=== PATIENT | female | born 1935 | race Caucasian/White ===

== ENCOUNTER 2017-01-22 08:53 | Inpatient (IN) | payer MEDICARE, OTHER ==
[~2017-01-22] VITALS: Ht 152.4 cm; Wt 65.0 kg
[2017-01-22 08:54] VITALS: BP 143/60; PULSE 102; RESP 20; TEMP 98.6; O2SAT 96
[2017-01-22] MEDS ORDERED: ZYPR5TAB PO (09:07)
[2017-01-22 09:14] VITALS: O2SAT 96
--- NOTE | 2017-01-22 09:28 | RADRPT ---
EXAM DATE/TIME: 01/22/2017 09:15 [facility] COMPARISON: No previous studies available for comparison. INDICATIONS : Patient is short of breath and has had pain on right side on her neck. MEDICAL HISTORY : None. SURGICAL HISTORY : Ovarian. ENCOUNTER: Initial ACUITY: 1 day PAIN SCORE: 0/10 LOCATION: Bilateral chest FINDINGS: A single view of the chest demonstrates the lungs to be symmetrically aerated with minimal atelectati c changes of both hemidiaphragms no confluent infiltrate or effusions. Heart size is normal. Degenera tive spurring in the mid dorsal spine. Osseous structures are otherwise intact. CONCLUSION: 1. Minimal bibasilar atelectatic changes/scarring. Lungs are otherwise clear. 2. Heart size is normal. No failure or effusions. Tacho Bryan MD on January 22, 2017 at 9:25 Board Certified Radiologist. This report was verified electronically.
--- NOTE | 2017-01-22 09:38 | PD ---
HPI Chief Complaint: ENT Complaint Time Seen by Provider: 09:07 Travel History International Travel<30 days: No Contact w/Intl Traveler<30days: No Traveled to known affect area: No History of Present Illness HPI 81-year-old female with no reported past medical history, presents today with complaints of neck swelling and difficulty swallowing. Patient also reports having loud snoring. She states that she's pulling secretions in her mouth and is having difficulty sleeping. She denies any fevers, chills patient does report a cough with white yellow phlegm. There are no other complaints time my examination. PFSH Past Surgical History Other Surgery: Yes (ovaries) Social History Alcohol Use: No Tobacco Use: No Substance Use: No Allergies-Medications (Allergen,Severity, Reaction): Coded Allergies: No Known Allergies (Verified , 01/22/17) Reported Meds & Prescriptions Reported Meds & Active Scripts Active Reported Zyprexa (Olanzapine) 5 Mg Tab 5 Mg PO DAILY Review of Systems Except as stated in HPI: all other systems reviewed are Neg General / Constitutional: No: Fever, Chills HENT: Positive: Neck Pain, Masses (neck masses), No: Headaches, Lightheadedness Cardiovascular: No: Chest Pain or Discomfort, Palpitations Respiratory: Positive: Cough (yellow), Shortness of Breath, Wheezing Gastrointestinal: No: Nausea, Vomiting, Abdominal Pain Genitourinary: No: Frequency, Dysuria Musculoskeletal: Positive: Weakness (generalized), No: Pain Neurologic: Positive: Weakness, No: Syncope, Focal Abnormalities, Headache ( generalized) Physical Exam Narrative GENERAL: Well-developed well-nourished female with audible coarse breath sounds. SKIN: Focused skin assessment warm/dry. HEAD: Atraumatic. Normocephalic. EYES: Pupils equal and round. No scleral icterus. No injection or drainage. ENT: No nasal bleeding or discharge. Mucous membranes pink and moist. NECK: Trachea midline. Bilateral submandibular masses. CARDIOVASCULAR: Regular rate and rhythm. No murmur appreciated. RESPIRATORY: Coarse rhonchi in the bilateral upper airways. No Rales in the distal airways. GASTROINTESTINAL: Abdomen soft, non-tender, nondistended. Hepatic and splenic margins not palpable. MUSCULOSKELETAL: No obvious deformities. No clubbing. No cyanosis. No edema. NEUROLOGICAL: Awake and alert. No obvious cranial nerve deficits. Motor grossly within normal limits. Normal speech. PSYCHIATRIC: Appropriate mood and affect; insight and judgment normal. Data Data Last Documented VS Vital Signs Date Time Temp Pulse Resp B/P Pulse Ox O2 Delivery O2 Flow Rate FiO2 01/22/17 11:08 78 20 138/65 97 01/22/17 08:54 98.6 Room Air Orders Complete Blood Count With Diff (01/22/17 09:07) Comprehensive Metabolic Panel (01/22/17 09:07) Thyroid Stimulating Hormone (01/22/17 09:07) Chest, Single Ap (01/22/17 09:07) Iv Access Insert/Monitor (01/22/17 09:07) Ecg Monitoring (01/22/17 09:07) Oximetry (01/22/17 09:07) Ct Soft Tiss Neck W Iv Cont (01/22/17 ) Iohexol 350 Inj (Omnipaque 350 Inj) (01/22/17 10:25) Cbc No Diff, Includes Plts (01/23/17 05:00) Cbc No Diff, Includes Plts (01/24/17 05:00) Cbc No Diff, Includes Plts (01/25/17 05:00) Cbc No Diff, Includes Plts (01/26/17 05:00) Cbc No Diff, Includes Plts (01/27/17 05:00) Cbc No Diff, Includes Plts (01/28/17 05:00) Cbc No Diff, Includes Plts (01/29/17 05:00) Basic Metabolic Panel (Bmp) (01/23/17 05:00) Basic Metabolic Panel (Bmp) (01/24/17 05:00) Basic Metabolic Panel (Bmp) (01/25/17 05:00) Basic Metabolic Panel (Bmp) (01/26/17 05:00) Basic Metabolic Panel (Bmp) (01/27/17 05:00) Basic Metabolic Panel (Bmp) (01/28/17 05:00) Basic Metabolic Panel (Bmp) (01/29/17 05:00) Magnesium Oxide (Mag-Ox) (01/22/17 12:00) Magnesium Sulfate Inj (Magnesium Sulfate (01/22/17 12:00) Magnesium Sulfate Inj (Magnesium Sulfate (01/22/17 12:00) Potassium Chlor 20 Meq Premix (Kcl 20 Me (01/22/17 12:00) Potassium Chlor 20 Meq Premix (Kcl 20 Me (01/22/17 12:00) Potassium Chlor 40 Meq Premix (Kcl 40 Me (01/22/17 12:00) Potassium Chlor 40 Meq Premix (Kcl 40 Me (01/22/17 12:00) Potassium Phosphate (K-Phos) (01/22/17 12:00) Potassium Phosphate (K-Phos) (01/22/17 12:00) Potassium Phosphate Inj (Potassium Phosp (01/22/17 12:00) Sodium Phosphate Inj (Sodium Phosphate I (01/22/17 12:00) ^ Medication Admin Instruction (01/22/17 11:52) Notify Dr: Other (01/22/17 11:52) Inpatient Certification (01/22/17 11:52) Resp Ezpap/Pep Therapy (01/22/17 11:52) Resp Acapella/Pep/Chest Vibra (01/22/17 11:52) Resp Incentive Spirometry (01/22/17 11:52) Albuterol-Ipratropium Neb (Duoneb Neb) (01/22/17 16:00) Albuterol-Ipratropium Neb (Duoneb Neb) (01/22/17 12:00) Code Status (01/22/17 11:52) Activity Bed Rest (01/22/17 11:52) Elevate Head Of Bed (01/22/17 11:52) Diet Npo (01/22/17 Lunch) Sodium Chlor 0.9% 1000 Ml Inj (Ns 1000 M (01/22/17 12:00) Ondansetron Inj (Zofran Inj) (01/22/17 12:00) Heparin Inj (Heparin Inj) (01/22/17 13:00) Scd Bilateral/Knee High GREGORIO.BID (01/22/17 11:52) ^ Initiate Protocol (01/22/17 11:52) Instruction (01/22/17 11:52) Misc Nursing Information (01/22/17 12:00) Chlorhexidine 2% Cloth (Chlorhexidine 2% (01/23/17 04:00) Chlorhexidine 2% Cloth (Chlorhexidine 2% (01/22/17 12:00) Mrsa Pcr Surveillance (01/22/17 11:52) Dexamethasone Inj (Decadron Inj) (01/22/17 13:00) Admit Order (Ed Use Only) (01/22/17 12:08) Labs Laboratory Tests Test 01/22/17 09:10 White Blood Count 9.3 TH/MM3 Red Blood Count 4.08 MIL/MM3 Hemoglobin 12.4 GM/DL Hematocrit 36.4 % Mean Corpuscular Volume 89.3 FL Mean Corpuscular Hemoglobin 30.3 PG Mean Corpuscular Hemoglobin 34.0 % Concent Red Cell Distribution Width 13.6 % Platelet Count 317 TH/MM3 Mean Platelet Volume 9.9 FL Neutrophils (%) (Auto) 82.6 % Lymphocytes (%) (Auto) 8.9 % Monocytes (%) (Auto) 7.1 % Eosinophils (%) (Auto) 1.0 % Basophils (%) (Auto) 0.4 % Neutrophils # (Auto) 7.7 TH/MM3 Lymphocytes # (Auto) 0.8 TH/MM3 Monocytes # (Auto) 0.7 TH/MM3 Eosinophils # (Auto) 0.1 TH/MM3 Basophils # (Auto) 0.0 TH/MM3 CBC Comment DIFF FINAL Differential Comment Sodium Level 141 MEQ/L Potassium Level 3.8 MEQ/L Chloride Level 103 MEQ/L Carbon Dioxide Level 31.0 MEQ/L Anion Gap 7 MEQ/L Blood Urea Nitrogen 12 MG/DL Creatinine 1.06 MG/DL Estimat Glomerular Filtration 50 ML/MIN Rate Random Glucose 133 MG/DL Calcium Level 9.4 MG/DL Total Bilirubin 0.3 MG/DL Aspartate Amino Transf 15 U/L (AST/SGOT) Alanine Aminotransferase 17 U/L (ALT/SGPT) Alkaline Phosphatase 57 U/L Total Protein 7.7 GM/DL Albumin 3.2 GM/DL Thyroid Stimulating Hormone 3.680 uIU/ML [address] [place] [address] Medical Decision Making Medical Screen Exam Complete: Yes Emergency Medical Condition: Yes Interpretation(s) Last 24 hours Impressions Chest X-Ray 01/22/17 0907 Signed Impressions: Service Date/Time: Sunday, January 22, 2017 09:15 - CONCLUSION: 1. Minimal bibasilar atelectatic changes/scarring. Lungs are otherwise clear. 2. Heart size is normal. No failure or effusions. Tacho Bryan MD Neck CT 01/22/17 0000 Signed Impressions: Service Date/Time: Deny, January 22, 2017 10:24 - CONCLUSION: Mass base of the tongue, right tonsillar pillar extending down to the vocal cords with direct extension into the right neck with substantial airway compromise. Adair Sam MD FACR Differential Diagnosis Lymphadenopathy versus neck mass versus esophageal mass Narrative Course This is a 81-year-old female with history of psychosocial issues, who presents today with complaints of neck mass with snoring respirations. The patient has on CT scan a large neck mass that radiates from the base of the tongue. There is airway compromise. After receiving the CAT scan results, I called Dr. Sim , on-call ENT, who stated that he would be happy to see the patient in consultation however he does not do tracheostomies at [facility]. He reported the general surgeons are the service that does the tracheostomies. I did contact Dr. Raimundo Goodman, environmental scientist and recommended we admit her to the intensive care unit until we can arrange for Gen. surgery to do a tracheostomy. Dr. Malave, on- call for Gen. surgery came down and evaluated the patient and did not feel comfortable performing the tracheostomy. He contacted Dr. Sim who recommended we contact Dr. Tacho Maurer at [facility]. I spoke with Dr. Maurer's physician pastry assistant who stated they would be happy to see the patient in consultation and recommended we contact the transfer center for a hospitalist willing to admit the patient. I spoke with a Dr. Negron who is agreeable to admit the patient however given the fact that we're to send the patient to the intensive care unit here, she recommended we talked to the environmental scientist to see what they would be willing to admit the patient to their service. I spoke with Dr. Li, environmental scientist who agreed to admit the patient. We will transfer the patient to [facility]. I informed him that we would be happy to take her back once the tracheostomy was performed. We're arranging for transport. As soon as a bed is available, we will call the ambulance service for transfer. Diagnosis Primary Impression: complicated neck mass with airway impingement Additional Impression: Chronic schizophrenia Disposition: 70 TRANSFER TO OTHER FACILITY Condition: Stable Prince Bland MD Jan 22, 2017 09:38 Prince Bland MD Jan 22, 2017 09:38
[2017-01-22 09:47] LABS: AUTOMATED NEUTROPHIL # 7.7 TH/MM3 (1.8-7.7); BASOPHIL % 0.4 % (0.0-2.0); EOSINOPHIL # 0.1 TH/MM3 (0-0.4); HEMATOCRIT 36.4 % (35.0-46.0); HEMO FLAGS DIFF FINAL; LYMPH % 8.9 % (9.0-44.0); LYMPHOCYTE # 0.8 TH/MM3 (1.0-4.8); MEAN CELL VOLUME 89.3 FL (80.0-100.0); MEAN CORPUSCULAR HEMOGLOBIN 30.3 PG (27.0-34.0); MONO % 7.1 % (0.0-8.0); NEUT % 82.6 % (16.0-70.0); PLATELET COUNT 317 TH/MM3 (150-450); RED BLOOD COUNT 4.08 MIL/MM3 (4.00-5.30); RED CELL DISTRIBUTION WIDTH 13.6 % (11.6-17.2); WHITE BLOOD COUNT 9.3 TH/MM3 (4.0-11.0)
[2017-01-22 10:03] LABS: ALT (GPT) 17 U/L (10-53); ANION GAP 7 MEQ/L (5-15); AST (GOT) 15 U/L (15-37); BLOOD UREA NITROGEN 12 MG/DL (7-18); CHLORIDE 103 MEQ/L (98-107); GLOMERULAR FILTRATION RATE 50 ML/MIN (>89); POTASSIUM 3.8 MEQ/L (3.5-5.1); SODIUM (NA) 141 MEQ/L (136-145)
[2017-01-22 10:13] LABS: ALKALINE PHOSPHATASE 57 U/L (45-117); TOTAL BILIRUBIN ADULT 0.3 MG/DL (0.2-1.0)
[2017-01-22] MEDS ORDERED: IOHEXOL 350 MG/ML 10 ML VIAL (for RAD DIAG) IV ONE (10:25)
[2017-01-22 11:08] VITALS: BP 138/65; PULSE 78; RESP 20; O2SAT 97
--- NOTE | 2017-01-22 11:41 | RADRPT ---
EXAM DATE/TIME: 01/22/2017 10:24 [facility] COMPARISON: No previous studies available for comparison. INDICATIONS : Right throat pain. IV CONTRAST: 100 cc Omnipaque 350 (iohexol) IV RADIATION DOSE: 13.87 CTDIvol (mGy) MEDICAL HISTORY : None SURGICAL HISTORY : None. ENCOUNTER: Initial ACUITY: 2 days PAIN SCALE: 5/10 LOCATION: Right neck TECHNIQUE: Volumetric scanning of the neck was performed. Using automated exposure control and adjustment of th e mA and/or kV according to patient size, radiation dose was kept as low as reasonably achievable to obtain optimal diagnostic quality images. DICOM format image data is available electronically for r eview and comparison. FINDINGS: There is right maxillary sinus disease evident. The nasopharynx is unremarkable There is an mass involving tonsillar pillar base of the tongue on the right extending down to the lev el of the true vocal cords with extensive involvement of the right true vocal cord which is fixed. T umor has spread into the soft tissues of the neck by direct extension There is confluent zoey mass and/or direct extension of tumor in the right neck measuring 3.9 cm x 2 .7 cm. This extends down to the level of the clavicle with involving of the thyroid. Moderate degenerative changes are present in the cervical spine without bony metastatic disease. Lung apex is clear. CONCLUSION: Mass base of the tongue, right tonsillar pillar extending down to the vocal cords with direct extensi on into the right neck with substantial airway compromise. Adair Sam MD FACR on January 22, 2017 at 11:34 Board Certified Radiologist. This report was verified electronically.
[2017-01-22] MEDS ORDERED: POTASSIUM CHLOR 20 MEQ PREMIX 100 ML IV PRN ×2 (12:00)
[2017-01-22] MEDS ORDERED: CHLORHEXIDINE GLUCONATE 2 % 1 PACK (2 CLOTHS) TOP PRN (12:00)
[2017-01-22] MEDS ORDERED: SODIUM CHLOR 0.9% 1000 ML INJ 1,000 ML IV SCH (12:00)
[2017-01-22] MEDS ORDERED: MAGNESIUM OXIDE 400 MG TAB PO PRN (12:00)
[2017-01-22] MEDS ORDERED: SODIUM PHOSPHATE INJ 30 MMOL in SODIUM CHLOR 0.9% 250 ML INJ 240 ML IV PRN (12:00)
[2017-01-22] MEDS ORDERED: POTASSIUM PHOSPHATE INJ 30 MMOL in SODIUM CHLOR 0.9% 250 ML INJ 250 ML IV PRN (12:00)
[2017-01-22] MEDS ORDERED: MAGNESIUM SULFATE INJ 2 GM in SODIUM CHLORIDE 0.9% INJ 96 ML IV PRN (12:00)
[2017-01-22] MEDS ORDERED: ONDANSETRON HCL 4 MG/2 ML VIAL IV PRN (12:00)
[2017-01-22] MEDS ORDERED: RESP: ALBUTEROL 2.5 MG/IPRATROPIUM 0.5 MG NEB (PRN) INH (12:00)
[2017-01-22] MEDS ORDERED: POTASSIUM PHOSPHATE MONOBASIC 500 MG TAB PO/TUBE PRN (12:00)
[2017-01-22] MEDS ORDERED: MAGNESIUM SULFATE INJ 4 GM in SODIUM CHLORIDE 0.9% INJ 92 ML IV PRN (12:00)
[2017-01-22] MEDS ORDERED: POTASSIUM PHOSPHATE MONOBASIC 500 MG TAB PO PRN (12:00)
[2017-01-22] MEDS ORDERED: POTASSIUM CHLOR 40 MEQ PREMIX 100 ML IV PRN ×2 (12:00)
[2017-01-22] MEDS ORDERED: MISCELLANEOUS NURSING INFORMATION XX SCH (12:00)
--- NOTE | 2017-01-22 12:04 | HHI.HP ---
[facility] Service Critical Care Medicine Primary Care Physician Mingo Francois MD Admission Diagnosis Diagnosis: Chief Complaint: neck mass Travel History International Travel<30 Days: No Contact w/Intl Traveler <30 Da: No Traveled to Known Affected Are: No History of Present Illness patient not admitted to the hospital. sent to outside hospital. note enterred in error. Past Family Social History Allergies: Coded Allergies: No Known Allergies (Verified , 01/22/17) Physical Exam Vital Signs Vital Signs Date Time Temp Pulse Resp B/P Pulse Ox O2 Delivery O2 Flow Rate FiO2 01/22/17 11:08 78 20 138/65 97 01/22/17 09:14 96 01/22/17 08:54 98.6 102 20 143/60 96 Room Air Laboratory Laboratory Tests Test 01/22/17 09:10 White Blood Count 9.3 Red Blood Count 4.08 Hemoglobin 12.4 Hematocrit 36.4 Mean Corpuscular Volume 89.3 Mean Corpuscular Hemoglobin 30.3 Mean Corpuscular Hemoglobin 34.0 Concent Red Cell Distribution Width 13.6 Platelet Count 317 Mean Platelet Volume 9.9 Neutrophils (%) (Auto) 82.6 Lymphocytes (%) (Auto) 8.9 Monocytes (%) (Auto) 7.1 Eosinophils (%) (Auto) 1.0 Basophils (%) (Auto) 0.4 Neutrophils # (Auto) 7.7 Lymphocytes # (Auto) 0.8 Monocytes # (Auto) 0.7 Eosinophils # (Auto) 0.1 Basophils # (Auto) 0.0 CBC Comment DIFF FINAL Differential Comment Sodium Level 141 Potassium Level 3.8 Chloride Level 103 Carbon Dioxide Level 31.0 Anion Gap 7 Blood Urea Nitrogen 12 Creatinine 1.06 Estimat Glomerular Filtration 50 Rate Random Glucose 133 Calcium Level 9.4 Total Bilirubin 0.3 Aspartate Amino Transf 15 (AST/SGOT) Alanine Aminotransferase 17 (ALT/SGPT) Alkaline Phosphatase 57 Total Protein 7.7 Albumin 3.2 Thyroid Stimulating Hormone 3.680 3rd Gen Result Diagram: 01/22/17 0910 01/22/17 0910 Yash Fregoso MD Jan 22, 2017 12:04
--- NOTE | 2017-01-22 12:47 | PD.CONS ---
HPI Service General Surgery Consult Requested By Dr. Fregoso Reason for Consult Neck mass with airway compromise Primary Care Physician Mingo Francois MD History of Present Illness 81 yo F with difficulty with secretions, breathing, and sleeping for about two weeks, worsening recently. She was noted in the ED to have stridor, and neck CT was ordered revealing a large neck mass possibly originating from the base of the tongue causing airway compromise. I have been asked to evaluate for tracheostomy. Review of Systems Constitutional: DENIES: Fever, Chills Eyes: DENIES: Eye inflammation, Eye pain Respiratory: COMPLAINS OF: Sputum production, Shortness of breath, DENIES: Cough Cardiovascular: DENIES: Chest pain, Palpitations Gastrointestinal: DENIES: Abdominal pain, Nausea Musculoskeletal: DENIES: Muscle aches, Back pain Integumentary: DENIES: Pruritus, Rash Neurologic: DENIES: Localized weakness, Paresthesias Past Family Social History Past Medical History None Past Surgical History Oophorectomy Reported Medications Reported Meds & Active Scripts Active Reported Zyprexa (Olanzapine) 5 Mg Tab 5 Mg PO DAILY Allergies: Coded Allergies: No Known Allergies (Verified , 01/22/17) Active Ordered Medications Current Medications Medications (Trade) Dose Ordered Sig/Jacob Route Start Time Stop Time Status Last Admin Magnesium Oxide 800 mg 800 mg UNSCH PRN PO 01/22/17 12:00 Magnesium Sulfate 4 gm/Sodium Chloride 100 ml @ 50 mls/hr UNSCH PRN IV 01/22/17 12:00 Magnesium Sulfate 2 gm/Sodium Chloride 100 ml @ 50 mls/hr UNSCH PRN IV 01/22/17 12:00 Potassium Chloride 100 ml @ 50 mls/hr Q2H PRN IV 01/22/17 12:00 Potassium Chloride 100 ml @ 50 mls/hr Q2H PRN IV 01/22/17 12:00 Potassium Chloride 100 ml @ 50 mls/hr Q2H PRN IV 01/22/17 12:00 (KCl 40 Meq Premix Inj) 100 ml @ 25 mls/hr UNSCH PRN IV 01/22/17 12:00 (K-Phos) 2,000 mg Q4H PRN PO 01/22/17 12:00 Potassium Phosphate 2000 mg 2,000 mg UNSCH PRN PO/TUBE 01/22/17 12:00 Potassium Phosphate 30 mmol/ Sodium Chloride 260 ml @ 42 mls/hr UNSCH PRN IV 01/22/17 12:00 Sodium Phosphate 30 mmol/Sodium Chloride 250 ml @ 42 mls/hr UNSCH PRN IV 01/22/17 12:00 (NS 1000 ml Inj) 1,000 ml @ 84 mls/hr [id number] IV 01/22/17 12:00 01/22/17 12:34 (Zofran Inj) 4 mg Q6H PRN IV 01/22/17 12:00 (Heparin Inj) 5,000 units Q12H SQ 01/22/17 13:00 Miscellaneous Information 1 [id number] 01/22/17 12:00 (Chlorhexidine 2% Cloth) 3 pack Taper DAILY@04 TOP 01/23/17 04:00 01/19/18 03:59 (Chlorhexidine 2% Cloth) 3 pack UNSCH PRN TOP 01/22/17 12:00 (Decadron Inj) 4 mg Q6H IV PUSH 01/22/17 12:00 01/23/17 11:59 UNV Family History Noncontributory Social History No alcohol tobacco or drug use. Physical Exam Vital Signs Vital Signs Date Time Temp Pulse Resp B/P Pulse Ox O2 Delivery O2 Flow Rate FiO2 01/22/17 11:08 78 20 138/65 97 01/22/17 09:14 96 01/22/17 08:54 98.6 102 20 143/60 96 Room Air Physical Exam GENERAL: Awake and alert. Sitting up in bed. Audible stridor. HEAD: Normocephalic. Atraumatic. ENT: Moist oral mucosa. NECK: Large firm neck mass right of midline with deviation of trachea the left. I'm not sure if I can palpate the trachea. CHEST: Audible stridor. She is breathing fairly comfortably. CARDIOVASCULAR: Regular rate and rhythm EXTREMITIES: No cyanosis or edema. SKIN: Warm, dry, nonjaundiced. Laboratory Laboratory Tests Test 01/22/17 09:10 White Blood Count 9.3 Red Blood Count 4.08 Hemoglobin 12.4 Hematocrit 36.4 Mean Corpuscular Volume 89.3 Mean Corpuscular Hemoglobin 30.3 Mean Corpuscular Hemoglobin 34.0 Concent Red Cell Distribution Width 13.6 Platelet Count 317 Mean Platelet Volume 9.9 Neutrophils (%) (Auto) 82.6 Lymphocytes (%) (Auto) 8.9 Monocytes (%) (Auto) 7.1 Eosinophils (%) (Auto) 1.0 Basophils (%) (Auto) 0.4 Neutrophils # (Auto) 7.7 Lymphocytes # (Auto) 0.8 Monocytes # (Auto) 0.7 Eosinophils # (Auto) 0.1 Basophils # (Auto) 0.0 CBC Comment DIFF FINAL Differential Comment Sodium Level 141 Potassium Level 3.8 Chloride Level 103 Carbon Dioxide Level 31.0 Anion Gap 7 Blood Urea Nitrogen 12 Creatinine 1.06 Estimat Glomerular Filtration 50 Rate Random Glucose 133 Calcium Level 9.4 Total Bilirubin 0.3 Aspartate Amino Transf 15 (AST/SGOT) Alanine Aminotransferase 17 (ALT/SGPT) Alkaline Phosphatase 57 Total Protein 7.7 Albumin 3.2 Thyroid Stimulating Hormone 3.680 3rd Gen Result Diagram: 01/22/17 0910 01/22/17 0910 Imaging Last Impressions Chest X-Ray 01/22/17 0907 Signed Impressions: Service Date/Time: Sunday, January 22, 2017 09:15 - CONCLUSION: 1. Minimal bibasilar atelectatic changes/scarring. Lungs are otherwise clear. 2. Heart size is normal. No failure or effusions. Tacho Bryan MD Neck CT 01/22/17 0000 Signed Impressions: Service Date/Time: Sunday, January 22, 2017 10:24 - CONCLUSION: Mass base of the tongue, right tonsillar pillar extending down to the vocal cords with direct extension into the right neck with substantial airway compromise. Adair Sam MD FACR Assessment and Plan Assessment and Plan 81-year-old female with stridor and airway compromise secondary to large neck mass, new diagnosis. The patient has substantial deviation of the trachea associated with a large mass from the base of the tongue down to nearly the manubrium. I'm not comfortable for performing the tracheostomy for this patient. I discussed the case with Dr. Sim of ENT and he recommends transfer to a facility for higher level of care for head and neck oncology. Discussed with Dr. Bland and Dr. Raimundo Fregoso. Cholo Malave MD Jan 22, 2017 12:47
[2017-01-22] MEDS ORDERED: HEPARIN SODIUM - SQ 10,000 UNITS/ML VIAL SQ SCH (13:00)
[2017-01-22] MEDS ORDERED: DEXAMETHASONE SOD PHOS 4 MG/ML VIAL IV PUSH SCH (13:00)
[2017-01-22 15:40] VITALS: BP 154/76; PULSE 87; RESP 20; O2SAT 96
[2017-01-22] MEDS: RESP: ALBUTEROL 2.5 MG/IPRATROPIUM 0.5 MG NEB (SCH) INH ×2 (15:44→20:23)
[2017-01-23] MEDS ORDERED: CHLORHEXIDINE GLUCONATE 2 % 1 PACK (2 CLOTHS) TOP SCH (04:00)
== END 2017-01-22 18:09 | disposition short-term general hospital (02) | DRG 607 ==
LOC: NEPC 08:53 → NEDA 12:14
PROVIDERS: ADMIT Internal Medicine Critical Care Medicine; ATTEND Internal Medicine Critical Care Medicine
DX: R22.1 Localized swelling, mass and lump, neck (principal); R06.1 Stridor; F20.9 Schizophrenia, unspecified
CPT/HCPCS: 70491; 71010; 80053; 84443; 85025; J1100; J7030; Q9967

== ENCOUNTER 2017-02-01 18:13 | Inpatient (IN) | payer MEDICARE, OTHER ==
[~2017-02-01 18:13] MED LIST: ZYPR5TAB PO
[2017-02-01] MEDS ORDERED: IPRASOL INH (22:22)
[2017-02-01 22:38] VITALS: BP 135/78; PULSE 96; RESP 18; TEMP 101.1; O2SAT 96
[2017-02-01] MEDS ORDERED: BISACODYL 10 MG SUPP RECTAL PRN (23:00)
[2017-02-01] MEDS ORDERED: SENNOSIDES 8.6 MG TAB PO PRN (23:00)
[2017-02-01] MEDS ORDERED: MAGNESIUM HYDROXIDE SUSP 30 ML CUP PO PRN (23:00)
[2017-02-01] MEDS ORDERED: ACETAMINOPHEN 650 MG/20.3 ML UDC PO PRN (23:00)
[2017-02-01] MEDS ORDERED: LACTULOSE SYRUP 20 GM/30 ML CUP PO PRN (23:00)
[2017-02-01] MEDS ORDERED: NALOXONE HCL 0.4 MG/ML AMP IV PRN (23:00)
[2017-02-01] MEDS ORDERED: SODIUM CHLORIDE 0.9% FLUSH 10 ML FLUSH IV FLUSH PRN (23:00)
[2017-02-01] MEDS ORDERED: ONDANSETRON HCL 4 MG/2 ML VIAL IVP PRN (23:00)
[2017-02-01] MEDS ORDERED: RESP: ALBUTEROL 2.5 MG/IPRATROPIUM 0.5 MG NEB (PRN) NEB (23:00)
[2017-02-01] MEDS: SODIUM CHLOR 0.9% 1000 ML INJ 1,000 ML IV SCH (23:29)
[2017-02-02] VITALS (7 sets, daily range): BP systolic 103–122; BP diastolic 52–59; PULSE 75–101; RESP 18–24; TEMP 97.9–99.6; O2SAT 91–97
[2017-02-02 01:19] LABS: AUTOMATED NEUTROPHIL # 6.8 TH/MM3 (1.8-7.7); BASOPHIL # 0.1 TH/MM3 (0-0.2); BASOPHIL % 0.6 % (0.0-2.0); EOSINOPHIL # 0.3 TH/MM3 (0-0.4); EOSINOPHIL % 2.9 % (0.0-4.0); HEMO FLAGS DIFF FINAL; LYMPH % 10.2 % (9.0-44.0); LYMPHOCYTE # 0.9 TH/MM3 (1.0-4.8); MEAN CELL VOLUME 89.5 FL (80.0-100.0); MEAN CORPUSCULAR HEMOGLOBIN 29.3 PG (27.0-34.0); MEAN CORPUSCULAR HGB CONC 32.7 % (32.0-36.0); MONO % 9.6 % (0.0-8.0); NEUT % 76.7 % (16.0-70.0); PLATELET COUNT 358 TH/MM3 (150-450); RED BLOOD COUNT 3.58 MIL/MM3 (4.00-5.30); RED CELL DISTRIBUTION WIDTH 13.5 % (11.6-17.2); WHITE BLOOD COUNT 8.9 TH/MM3 (4.0-11.0)
--- NOTE | 2017-02-02 01:29 | RADRPT ---
EXAM DATE/TIME: 02/02/2017 00:31 [facility] COMPARISON: CHEST SINGLE AP, January 22, 2017, 9:15. INDICATIONS : Cough. MEDICAL HISTORY : Unobtainable. SURGICAL HISTORY : Ovarian. ENCOUNTER: Initial ACUITY: 1 day PAIN SCORE: Non-responsive. LOCATION: chest FINDINGS: A single view of the chest demonstrates the lungs to be symmetrically aerated with some linear atelec tatic changes or scarring in both lung bases, slightly worse when compared to the prior exam. No conf luent infiltrate or effusion. Heart size is normal. Tracheostomy tube with the tip just above the cla vicular heads. Osseous structures are intact with some degenerative spurring of the dorsal spine. CONCLUSION: 1. Bibasilar atelectatic changes/scarring, slightly worse when compared to the prior exam. 2. No confluent infiltrate. 3. Tracheostomy tube with the tip identified just above the clavicular heads. Tacho Bryan MD on February 02, 2017 at 1:25 Board Certified Radiologist. This report was verified electronically.
[2017-02-02 01:33] LABS: BICARBONATE 29.7 MEQ/L (21.0-32.0); POTASSIUM 4.4 MEQ/L (3.5-5.1)
[2017-02-02 04:53] LABS: BACTERIA, URINE OCC /hpf; BLOOD, URINE NEG (NEG); GLUCOSE,URINE NEG (NEG); KETONE, URINE NEG (NEG); NITRITE,URINE NEG (NEG); PH, URINE 7.5 (5.0-8.5); SQUAMOUS EPITHELIAL CELL URINE <1 /hpf (0-5); URINE COLOR YELLOW (YELLW/STRAW)
[2017-02-02 04:54] LABS: COMMENT (UR) CULTURE INDICATED; CULTURE IF INDICATED CULTURE INDICATED
[2017-02-02] MEDS: RESP: ALBUTEROL 2.5 MG/IPRATROPIUM 0.5 MG NEB (SCH) NEB ×6 (07:51→21:34)
[2017-02-02] MEDS: SODIUM CHLORIDE 0.9% FLUSH 10 ML FLUSH IV FLUSH SCH ×2 (10:30→20:51)
[2017-02-02] MEDS: OLANZapine 5 MG TAB PO SCH (10:30)
[2017-02-02] MEDS ORDERED: guaiFENesin SOLUTION 200 MG/10 ML CUP PO PRN (16:15)
--- NOTE | 2017-02-02 18:35 | HP.UPD ---
H&P Update Note And examined This is a 81 year-old female with a history of neck abscess. She came into the emergency department at [facility] on 01/22/17 with difficulty breathing. She was found to have a large right sided tumor in her neck originating at the base of her tongue and almost totally occluding her airway. She was transferred as an emergency to [facility] where she had a tracheostomy and PEG tube inserted. She was transferred back to [facility] last night. She was seen and examined by the undersigned in room 700. She is alert and responsive. She does communicate well. She follows all commands. At this time she is to have PEG tube feeding started. Oncology is consulted. Full history and physical to follow Elham Caruso MD Feb 02, 2017 18:32
[2017-02-02] MEDS: HYOSCYAMINE SOLN 0.125 MG/ML 15 ML BTL PEG PRN (20:44)
[2017-02-02] MEDS: methylPREDNISolone SOD SUCC 40 MG/1 ML VIAL IV SCH (20:51)
[2017-02-02] MEDS: SODIUM CHLOR 0.9% 1000 ML INJ 1,000 ML IV SCH (20:54)
--- NOTE | 2017-02-02 21:25 | MB ---
cc: ArianNiiktaMOYA,JANUARY DATE OF CONSULTATION 02/02/17 REASON FOR CONSULTATION Respiratory insufficiency and status post tracheostomy with a neck mass. HISTORY OF PRESENT ILLNESS This is a 81-year-old lady who recently was in the hospital with shortness of breath, difficulty in swallowing and choking and expectorating thick secretions. The patient apparently was evaluated [address] weeks [address] and a [address] of the neck showed a large mass at the base of the tongue extending around to the vocal cords and into the right side of her neck compromising the airway. She was sent to [facility] in [place] and a tracheostomy tube was placed and the patient was then transferred back here for further evaluation and therapy. She does have a history of schizophrenia and she has been on a trache collar at 28%, maintaining her sats over 95. She is not having any fevers or chills and no hemoptysis. PAST HISTORY Past history includes schizophrenia and history for oophorectomy and recent diagnosis of neck mass. Pathology is pending. ALLERGIES None listed. MEDICATIONS Med list included: 1. DuoNeb nebs q.i.d. 2. Zyprexa. REVIEW OF SYSTEMS The patient is unable to give a proper history due to presence of tracheostomy. She nods her head to questions. HABITS The patient does not smoke. No significant alcohol use. PHYSICAL EXAMINATION GENERAL: This averagely built elderly white female who is laying flat. She is in no acute distress. VITAL SIGNS: Blood pressure 136/70, pulse is 85, respirations 18, temperature 97.8. HEENT: Head normocephalic. Pupils are reactive and equal. Tongue is mildly deviated to the left. Throat has secretions. Ears no inflammation. NECK: Supple with a trache tube in place, with some swelling along the right side of her neck. No venous distension. CHEST: Equal movements with occasional basilar crackles and wheezes scattered. HEART: Heart sounds are regular S1-S2. No murmur. No S3. ABDOMEN: Soft, protuberant. Bowel sounds are active. No organomegaly. EXTREMITIES: No lesions. No edema. Peripheral pulses are well felt. Reflexes are 1+ with no gross motor deficits. SKIN: No lesions observed. IMPRESSION 1. Head and neck cancer. 2. Status post tracheostomy. 3. Possible diabetes. 4. Anemia of chronic disease. PLAN The patient has been placed on a trache collar at 30% FIO2. We will place her on DuoNeb nebs q.i.d. and also continue with Levsin liquid 0.125 milligrams q. 6 p.r.n. Culture from tracheal aspirate to be done and the patient will have a CBC and BMP ordered. Tracheal suction and lavage will be carried out periodically. If her oxygen saturation drops below 90 we may need to use C-PAP at night. Further treatment for head and neck cancer to be pursued by oncology. Thank you Dr. Rosales for this consultation. I will follow the case with you. January Villanueva MD JVD/DAMARIS /8:23 PM /9:05 PM
[2017-02-03] VITALS (8 sets, daily range): BP systolic 105–124; BP diastolic 51–72; PULSE 79–92; RESP 19–22; TEMP 96.4–97.9; O2SAT 92–98
[2017-02-03] MEDS: HYOSCYAMINE SOLN 0.125 MG/ML 15 ML BTL PEG PRN (05:04)
[2017-02-03] MEDS: methylPREDNISolone SOD SUCC 40 MG/1 ML VIAL IV SCH ×2 (06:18→21:30)
--- NOTE | 2017-02-03 06:46 | RADRPT ---
EXAM DATE/TIME: 02/03/2017 06:26 [place] COMPARISON: CHEST SINGLE AP, February 02, 2017, 0:31. INDICATIONS : Shortness of breath, possible pulmonary disease. MEDICAL HISTORY : Neck mass SURGICAL HISTORY : Tracheostomy PEG tube ENCOUNTER: Subsequent ACUITY: 2 days PAIN SCORE: 0/10 LOCATION: Bilateral chest FINDINGS: A single view of the chest demonstrates mild basilar opacity, not significantly changed since February 02. The tracheostomy is in satisfactory position. Tortuous aorta. CONCLUSION: 1. Minimal basal opacity unchanged from February 02. No new infiltrate or effusion. Rush Crain MD on February 03, 2017 at 6:43 Board Certified Radiologist. This report was verified electronically.
[2017-02-03] MEDS: RESP: ALBUTEROL 2.5 MG/IPRATROPIUM 0.5 MG NEB (SCH) NEB ×5 (08:00→20:16)
[2017-02-03] MEDS: OLANZapine 5 MG TAB PO SCH (10:26)
[2017-02-03] MEDS: SODIUM CHLOR 0.9% 1000 ML INJ 1,000 ML IV SCH ×2 (10:26→21:31)
[2017-02-03] MEDS: SODIUM CHLORIDE 0.9% FLUSH 10 ML FLUSH IV FLUSH SCH ×2 (10:29→21:00)
--- NOTE | 2017-02-03 14:40 | HHI.PR ---
Subjective Remarks Resting in room Awake understand simple conversation Tracheostomy with suctioning when necessary secretions white creamy Afebrile, (Amy Barros) Objective Objective Results - Vital Signs Date Time Temp Pulse Resp B/P Pulse Ox O2 Delivery O2 Flow Rate FiO2 02/03/17 12:00 97.7 92 20 124/72 02/03/17 08:19 93 02/03/17 08:00 97.4 82 20 115/67 92 02/03/17 04:00 97.9 90 20 124/58 95 02/03/17 00:00 97.9 79 19 105/51 95 02/02/17 21:43 96 T-piece 6.00 28 02/02/17 20:00 98.0 85 20 104/59 96 Manual Cuff/Doppler 02/02/17 16:00 98.4 90 20 93 103/55 I/O 02/02/17 02/02/17 02/02/17 02/03/17 02/03/17 02/03/17 07:00 15:00 23:00 07:00 15:00 23:00 Intake Total 236 ml 0 ml 472 ml 1404 ml Output Total 250 ml 250 ml 200 ml 250 ml Balance -14 ml -250 ml 272 ml 1154 ml Intake Oral 0 ml 0 ml 0 ml IV Total 236 ml 472 ml 1104 ml Tube Feeding 300 ml Output Urine Total 250 ml 250 ml 200 ml 250 ml # Voids 1 # Bowel Movements 0 0 (Amy Barros) Result Diagram: 02/02/17 0040 02/02/17 0040 ROS General: Fatigue, Weakness, Other (10 point ROS done positives noted) HEENT: Dysphagia Pulmonary: Other (trach, T piece) GI: Other (PEG tube feedings initiated) Neuro/MS: Other (diagnosis of history of schizophrenia) (Amy Barros) Physical Exam Physical Exam PHYSICAL EXAMINATION GENERAL: This is a elderly female who appears to be in no acute distress. She is awake HEAD: Normocephalic OROPHARYNGEAL: White creamy secretions NECK: Tracheostomy, secretions suctioned as needed Trachea midline without deviation. CARDIAC: Regular rhythm, regular rate, S1 and S2 are heard. LUNGS: Diminished to auscultation bilaterally. Positive rhonchi ABDOMEN: Soft, nontender, no organomegaly or masses. Bowel sounds are heard in all four quadrants. No rebound. No guarding. EXTREMITIES: no edema. Extremities warm NEUROLOGICAL: Patient mood and affect appropriate SKIN:Warm and moist (Amy Barros) A/P Assessment and Plan history of neck abscess., Large right-sided tumor originating at the base of tongue and into the neck Tracheostomy in place, suction when necessary, Levsin ordered assist with secretions, oxygen, dual neb treatments Encourage patient to cough and deep breathe, oncology consulted for their expert opinion Schizophrenia, medical management, currently patient is calm, opens eyes and tracks, shakes her head in mouths words, understands simple communication Obesity, history of, patient is now requiring feeding via PEG tube, weight loss since her initial diagnosis of head and neck cancer. Support her protein level Positive sputum culture, Pseudomonas, BROOK to follow, placed on Levaquin IV for now, contact isolation Afebrile, no leukocytosis Anemia, no acute blood loss probable secondary to her chronic disease Continue to monitor her labs Records ordered from [facility] Discussed with nurse Discussed with Dr. Narayan, seen on his behalf Niece has come to visit, but when I got to the room she was gone. She had spoke to nurse that they would like to talk to hospice. Consult ordered for information (Amy Barros) Assessment and Plan Patient seen and examined as above, [id number] time spent with patient Some of the previous notes reviewed Labs reviewed Plan of care discussed with NIMO Medications reviewed Explained to the patient Condition guarded Appreciate consultants input Continue current management (Lance Narayan MD) Amy Barros Feb 03, 2017 14:40 Lance Narayan MD Feb 03, 2017 16:03
--- NOTE | 2017-02-03 17:01 | MB ---
cc: NIC ESTRELLA DATE OF CONSULTATION: 02/02/2017. REASON FOR CONSULTATION: Patient with a diagnosis of base of the tongue cancer. HISTORY OF PRESENT ILLNESS: This is a 81-year-old female who recently presented to the [facility] with worsening dyspnea and dysphagia. She underwent a CT scan of the neck and this revealed a mass involving the tonsillar base of the tongue on the right extending down to the level of the true vocal cords. There was extensive involvement of the right true vocal cord. Tumor spread was also noted involving the soft tissues of the neck by direct extension. There was a confluent zoey mass with extension of the tumor into the right neck measuring 3.9 x 2.7 cm. This extended down to the level of clavicle and involving the thyroid. There were moderate degenerative changes of the cervical spine but no evidence of metastatic disease. Due to the patient's airway compromise, surgery was consulted and it was decided that the patient needed a high level of care at a different hospital. She was transferred to [facility] in [place] where she underwent tracheostomy and PEG tube insertion. She was brought back to [facility]. I do not have results of the biopsy. She now has a trache collar at 28% and is saturating well. Her other medical problems include history of schizophrenia. REVIEW OF SYSTEMS: A comprehensive 14-point review of systems was completed, which is negative except as described in the history of present illness. PAST MEDICAL HISTORY: 1. Schizophrenia. 2. Obesity. 3. Tracheostomy. 4. PEG tube insertion PAST SURGICAL HISTORY: Oophorectomy. MEDICATIONS: 1. Zyprexa. 2. DuoNeb. 3. Solu-Medrol 40 milligrams IV q.8 h. 4. Levofloxacin IV q.24 h. 5. Zyprexa 5 milligrams p.o. daily. 6. Zofran 4 milligrams IV q.6 h p.r.n. ALLERGIES: NO KNOWN DRUG ALLERGIES. FAMILY HISTORY: Family history was reviewed and it is noncontributory to this admission. SOCIAL HISTORY: She denies tobacco use. No alcohol abuse or illicit drug use. PHYSICAL EXAMINATION: VITAL SIGNS: Blood pressure is 124/72, pulse is in the 90s, temperature 97.7, 02 saturations are 93%. GENERAL: An elderly female acutely ill obese and in no apparent distress. HEAD, EYES, EARS, NOSE, THROAT: Status post tracheostomy. CARDIAC: S1-S2. Regular rate and rhythm. CHEST: Bilateral scattered rhonchi. ABDOMEN: The abdomen is soft, nontender and nondistended. Bowel sounds are present. EXTREMITIES: Without any edema, erythema or cyanosis. SKIN: Without any petechiae, lesion or bruises. NEUROLOGIC: No focal deficit. PSYCHIATRIC: Mood and affect is appropriate. LABORATORY DATA: WBC is 8.9, hemoglobin is 10.5, MCV is 89.5, platelet count is 358,000. Serum chemistries show sodium of 140, potassium 4.4, chloride 104, CO2 29.7, BUN is 15, creatinine is 0.74. IMAGING STUDIES: Reviewed in the electronic medical record. ASSESSMENT: This is 81-year-old female who presented with a large base of the tongue mass with symptoms of progressive dyspnea and dysphagia. She has undergone tracheostomy and PEG tube placement. I have been consulted to make further recommendations. 1. 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 There appears to be extension of the cancer to the thyroid gland and to the level of the clavicle. There is no apparent metastasis to the bone. This patient has locally advanced disease. We need to discuss this case with ENT. She will probably need a referral to a tertiary care center such as the [facility]. I am somewhat skeptical that she will be a surgical candidate. She can be considered for concurrent chemotherapy and radiation. I will discuss this case with radiation oncology as well. We need to obtain the results of the biopsy from [facility] in [place]. We will request HPV testing on the biopsy. I would recommend obtaining a CT of the chest to assess for any metastasis. 2. Mild normocytic anemia due to acute illness, hemoglobin is 10.5. Continue to monitor. Obtain anemia studies. 3. Status post trache. Trache care per primary team and pulmonology 4. Status post PEG tube insertion. Consult color buffer. Continue tube feeds. Thank you for allowing me to participate in the care of this patient. I will continue to follow this patient along. MD GEORGIANA Joseph/DOROTEO /4:28 PM /4:44 PM
[2017-02-03] MEDS: LEVOFLOXACIN 750 MG PREMIX INJ 150 ML IV SCH (21:30)
[2017-02-04] VITALS (8 sets, daily range): BP systolic 102–146; BP diastolic 51–76; PULSE 52–99; RESP 18–23; TEMP 97.5–98.4; O2SAT 93–96
[2017-02-04] MEDS: methylPREDNISolone SOD SUCC 40 MG/1 ML VIAL IV SCH ×3 (05:26→22:59)
[2017-02-04] MEDS: RESP: ALBUTEROL 2.5 MG/IPRATROPIUM 0.5 MG NEB (SCH) NEB ×4 (08:30→20:20)
[2017-02-04] MEDS: OLANZapine 5 MG TAB PO SCH (08:45)
[2017-02-04] MEDS: SODIUM CHLORIDE 0.9% FLUSH 10 ML FLUSH IV FLUSH SCH ×2 (09:00→21:00)
[2017-02-04 12:12] LABS: AUTOMATED NEUTROPHIL # 11.9 TH/MM3 (1.8-7.7); BASOPHIL % 0.2 % (0.0-2.0); HEMATOCRIT 29.7 % (35.0-46.0); HEMO FLAGS DIFF FINAL; LYMPH % 4.6 % (9.0-44.0); LYMPHOCYTE # 0.6 TH/MM3 (1.0-4.8); MEAN CELL VOLUME 88.3 FL (80.0-100.0); MEAN CORPUSCULAR HEMOGLOBIN 29.3 PG (27.0-34.0); MEAN CORPUSCULAR HGB CONC 33.1 % (32.0-36.0); MONO % 1.8 % (0.0-8.0); NEUT % 93.4 % (16.0-70.0); PLATELET COUNT 406 TH/MM3 (150-450); RED BLOOD COUNT 3.36 MIL/MM3 (4.00-5.30); RED CELL DISTRIBUTION WIDTH 13.5 % (11.6-17.2); WHITE BLOOD COUNT 12.7 TH/MM3 (4.0-11.0)
[2017-02-04 12:39] LABS: ANION GAP 8 MEQ/L (5-15); AST (GOT) 17 U/L (15-37); BICARBONATE 26.5 MEQ/L (21.0-32.0); BLOOD UREA NITROGEN 15 MG/DL (7-18); CHLORIDE 108 MEQ/L (98-107); GLOMERULAR FILTRATION RATE 95 ML/MIN (>89); POTASSIUM 4.4 MEQ/L (3.5-5.1); SODIUM (NA) 142 MEQ/L (136-145)
[2017-02-04 13:04] LABS: ALKALINE PHOSPHATASE 46 U/L (45-117); ALT (GPT) 25 U/L (10-53); FERRITIN 214 NG/ML (8-252); LDH SERUM 184 U/L (84-246); TOTAL BILIRUBIN ADULT 0.2 MG/DL (0.2-1.0); TRANSFERRIN IRON PROFILE 154 MG/DL (200-360)
--- NOTE | 2017-02-04 13:22 | PD.ONC.PN ---
Subjective Subjective Remarks Afebrile overnight. Resting comfortably. no complaints. Objective Data Date Time Temp Pulse Resp B/P (MAP) Pulse Ox O2 Delivery O2 Flow Rate FiO2 02/04/17 08:30 96 T-piece 5.00 28 02/04/17 04:00 98.0 80 22 112/55 (74) 95 02/04/17 00:00 98.2 89 23 102/51 (68) 93 02/03/17 20:20 98 T-piece 28 02/03/17 20:00 96.4 81 22 124/58 (80) 94 02/03/17 16:00 96.9 90 20 110/51 (70) 93 02/04/17 02/04/17 02/04/17 07:00 15:00 23:00 Intake Total 0 ml Output Total 200 ml Balance -200 ml Result Diagram: 02/04/17 1200 02/04/17 1200 Laboratory Results Laboratory Tests Test 02/04/17 12:00 White Blood Count 12.7 TH/MM3 Red Blood Count 3.36 MIL/MM3 Hemoglobin 9.8 GM/DL Hematocrit 29.7 % Mean Corpuscular Volume 88.3 FL Mean Corpuscular Hemoglobin 29.3 PG Mean Corpuscular Hemoglobin Concent 33.1 % Red Cell Distribution Width 13.5 % Platelet Count 406 TH/MM3 Mean Platelet Volume 9.9 FL Neutrophils (%) (Auto) 93.4 % Lymphocytes (%) (Auto) 4.6 % Monocytes (%) (Auto) 1.8 % Eosinophils (%) (Auto) 0.0 % Basophils (%) (Auto) 0.2 % Neutrophils # (Auto) 11.9 TH/MM3 Lymphocytes # (Auto) 0.6 TH/MM3 Monocytes # (Auto) 0.2 TH/MM3 Eosinophils # (Auto) 0.0 TH/MM3 Basophils # (Auto) 0.0 TH/MM3 CBC Comment DIFF FINAL Differential Comment Haptoglobin 402 MG/DL Blood Urea Nitrogen 15 MG/DL Creatinine 0.61 MG/DL Random Glucose 196 MG/DL Total Protein 5.9 GM/DL Albumin 2.1 GM/DL Calcium Level 8.6 MG/DL Alkaline Phosphatase 46 U/L Aspartate Amino Transf (AST/SGOT) 17 U/L Alanine Aminotransferase (ALT/SGPT) 25 U/L Lactate Dehydrogenase 184 U/L Total Bilirubin 0.2 MG/DL Sodium Level 142 MEQ/L Potassium Level 4.4 MEQ/L Chloride Level 108 MEQ/L Carbon Dioxide Level 26.5 MEQ/L Anion Gap 8 MEQ/L Estimat Glomerular Filtration Rate 95 ML/MIN Iron Level 57 MCG/DL Total Iron Binding Capacity 216 MCG/DL Percent Iron Saturation 26.4 % Ferritin 214 NG/ML Vitamin B12 Level 673 PG/ML Folate GREATER THAN 20.0 NG/ML Culture Results Microbiology Date/Time Source Procedure Growth Status 02/02/17 00:40 Blood Peripheral Aerobic Blood Culture - Preliminary NO GROWTH IN 2 DAYS Resulted 02/02/17 00:40 Blood Peripheral Anaerobic Blood Culture - Preliminary NO GROWTH IN 2 DAYS Resulted 02/02/17 00:35 Blood Peripheral Aerobic Blood Culture - Preliminary NO GROWTH IN 2 DAYS Resulted 02/02/17 00:35 Blood Peripheral Anaerobic Blood Culture - Preliminary NO GROWTH IN 2 DAYS Resulted 02/02/17 03:10 Sputum Endotracheal Gram Stain - Final Resulted 02/02/17 03:10 Sputum Culture - Preliminary Pseudomonas Species Resulted Administered Medications Medications (Trade) Dose Ordered Sig/Jacob Route PRN Reason Start Time Stop Time Status Last Admin Dose Admin Sodium Chloride 1,000 ml @ 100 mls/hr Q10H IV 02/01/17 22:47 02/03/17 21:31 Sodium Chloride (NS Flush) 2 ml BID IV FLUSH 02/02/17 09:00 02/03/17 10:29 Albuterol/ Ipratropium (Duoneb Neb) 1 ampule Q4HR WHILE AWAKE NEB NEB 02/02/17 08:00 02/04/17 11:36 Acetaminophen (Tylenol 650 Mg/ 20 ml Liq) 650 mg Q6H PRN PO FEVER >100.5 AND/OR HEADACHE 02/01/17 23:00 02/01/17 23:28 Olanzapine (ZyPREXA) 5 mg DAILY PO 02/02/17 09:00 02/03/17 10:26 Hyoscyamine Sulfate (Levsin Liq) 0.125 mg Q4H PRN PEG SECRETIONS 02/02/17 16:15 02/03/17 05:04 Methylprednisolone Sodium Succinate (SoluMEDROL INJ) 40 mg Q8HR IV 02/02/17 22:00 02/04/17 05:26 Levofloxacin/ Dextrose 150 ml @ 100 mls/hr Q24H IV 02/03/17 15:00 02/03/17 21:30 Objective Remarks GENERAL: Elderly female supine in bed SKIN: Warm and dry. HEAD: Normocephalic. EYES: No injection or drainage. NECK: Supple, trachea midline. trach in place. CARDIOVASCULAR: Regular rate and rhythm RESPIRATORY: Breath sounds equal bilaterally. No accessory muscle use. GASTROINTESTINAL: Abdomen soft, non-tender, nondistended. receiving TF via G- tube EXTREMITIES: No cyanosis NEUROLOGICAL: awake, following commands Assessment/Plan Problem List: (1) Head and neck malignancy ICD Codes: C76.0 - Malignant neoplasm of head, face and neck Plan: --awaiting records from . --thus far appears to be locally advanced disease, will obtain CT chest for further staging. --will need ENT and Rad/onc input. -- will probably need a referral to a tertiary care center such as the [facility]. History: recently presented to the ED with worsening dyspnea and dysphagia. --CT scan neck revealed a mass involving the tonsillar base of the tongue on the right extending down to the level of the true vocal cords. +extensive involvement of the right true vocal cord. Tumor spread was also noted involving the soft tissues of the neck by direct extension. confluent zoey mass with extension of the tumor into the right neck measuring 3.9 x 2.7 cm. This extended down to the level of clavicle and involving the thyroid. There were moderate degenerative changes of the cervical spine but no evidence of metastatic disease. --Due to the patient's airway compromise, surgery was consulted and it was decided that the patient needed a high level of care at a different hospital. She was transferred to [facility] in [place] where she underwent tracheostomy and PEG tube insertion. She was brought back to [facility]. --records request sent to [facility] (2) Normocytic anemia ICD Codes: D64.9 - Anemia, unspecified Plan: Mild normocytic anemia due to acute illness, --Continue to monitor. --no iron or B12 deficiency. 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 h/o Schizophrenia. Obesity. Tracheostomy. PEG tube insertion Plan 1. records request faxed to [facility] 2. monitor CBC 3. await pathology report 4. obtain CT chest for staging. Attending Statement The exam, history, and the medical decision-making described in the above note were completed with the assistance of the mid-level provider. I reviewed and agree with the findings presented. I attest that I had a [id number] encounter with the patient on the same day, and personally performed and documented my assessment and findings in the medical record. Discission with family regarding goals of care Obtain records from in [place] Anemia studies CT scan chest for staging d.w patient. reviewed o/n events d.w Ita Weaver Feb 04, 2017 13:22 Prateek Bertrand MD Feb 04, 2017 17:19
[2017-02-04] MEDS: LEVOFLOXACIN 750 MG PREMIX INJ 150 ML IV SCH (13:47)
--- NOTE | 2017-02-04 15:08 | HHI.PR ---
Subjective Remarks Resting in room Awake understands questions, mouthing her answers Trach, trach care suctioning when necessary, stable Afebrile, (Amy Barros) Objective Objective Results - Vital Signs Date Time Temp Pulse Resp B/P (MAP) Pulse Ox O2 Delivery O2 Flow Rate FiO2 02/04/17 12:00 98.4 99 18 144/72 (96) 93 02/04/17 08:30 96 T-piece 5.00 28 02/04/17 08:00 98.4 97 18 139/76 (97) 93 02/04/17 04:00 98.0 80 22 112/55 (74) 95 02/04/17 00:00 98.2 89 23 102/51 (68) 93 02/03/17 20:20 98 T-piece 28 02/03/17 20:00 96.4 81 22 124/58 (80) 94 02/03/17 16:00 96.9 90 20 110/51 (70) 93 I/O 02/03/17 02/03/17 02/03/17 02/04/17 02/04/17 02/04/17 06:59 14:59 22:59 06:59 14:59 22:59 Intake Total 1404 ml 0 ml 0 ml 190 ml Output Total 250 ml 600 ml 200 ml Balance 1154 ml -600 ml -200 ml 190 ml Intake Oral 0 ml 0 ml IV Total 1104 ml 190 ml Tube Feeding 300 ml Output Urine Total 250 ml 600 ml 200 ml # Voids 0 (Amy Barros) Result Diagram: 02/04/17 1200 02/04/17 1200 ROS General: Weakness (generalized), Other (10 point ROS done positives noted) GI: Other (constipation) (Amy Barros) Physical Exam Physical Exam PHYSICAL EXAMINATION GENERAL: This is a elderly female who appears to be in no acute distress. She is awake. HEAD: Normocephalic Facial features appear symmetric., Tracheostomy, secured OROPHARYNGEAL: Oropharynx creamy secretions NECK: Supple. Tracheostomy intact, suction when necessary Trachea midline without deviation. CARDIAC: Regular rhythm, regular rate, S1 and S2 are heard. LUNGS: Mild diminished to auscultation bilaterally. Positive rhonchi ABDOMEN: taut, nontender, no organomegaly or masses. Bowel sounds are heard in all four quadrants. EXTREMITIES: no edema. Pulses equal bilateral. NEUROLOGICAL: Patient mood and affect appropriate SKIN:Warm and moist (Amy Barros) A/P Assessment and Plan history of neck abscess., Large right-sided tumor originating at the base of tongue and into the neck Tracheostomy in place, suction when necessary, Levsin ordered assist with secretions, oxygen, dual neb treatments Encourage patient to cough and deep breathe, oncology consulted for their expert opinion., Ordered before niece decided to transition to hospice Niece is these spokes person for this patient. Interested in hospice Schizophrenia, medical management, currently patient is calm, opens eyes and tracks, shakes her head in mouths words, understands simple communication Obesity, history of, patient is now requiring feeding via PEG tube, weight loss since her initial diagnosis of head and neck cancer. Support her protein level Positive sputum culture, Pseudomonas, BROOK to follow, placed on Levaquin IV for now, contact isolation Afebrile, no leukocytosis Anemia, no acute blood loss probable secondary to her chronic disease Continue to monitor her labs Discharge planning, hospice consult initiated today, niece spoke with Jesusita briefly and plans to speak with her again tomorrow. Looking at no aggressive care, focus more on comfort Looking at transitional home placement, hospice care center Records ordered from [facility] Discussed with nurse Discussed with Dr. Narayan, seen on his behalf (Amy Barros) Assessment and Plan Patient seen and examined [id number] time spent with patient Labs reviewed Appreciate consultants help Condition guarded Overall prognosis guarded to poor looking Explained to patient Okay with hospice (Lance Narayan MD) Amy Barros Feb 04, 2017 15:08 Lance Narayan MD Feb 04, 2017 17:03
[2017-02-04] MEDS: SODIUM CHLOR 0.9% 1000 ML INJ 1,000 ML IV SCH (23:02)
[2017-02-05] VITALS: BP 114/60; PULSE 78; RESP 21; TEMP 97.4; O2SAT 93
[2017-02-05 04:00] VITALS: BP 134/65; PULSE 88; RESP 21; TEMP 97.6; O2SAT 94
[2017-02-05] MEDS: methylPREDNISolone SOD SUCC 40 MG/1 ML VIAL IV SCH ×2 (06:09→13:48)
[2017-02-05 07:33] VITALS: O2SAT 95
[2017-02-05] MEDS: RESP: ALBUTEROL 2.5 MG/IPRATROPIUM 0.5 MG NEB (SCH) NEB ×3 (07:33→15:37)
[2017-02-05 08:00] VITALS: BP 125/57; PULSE 83; RESP 20; TEMP 97.7; O2SAT 93
[2017-02-05 08:02] LABS: AUTOMATED NEUTROPHIL # 10.8 TH/MM3 (1.8-7.7); BASOPHIL % 0.1 % (0.0-2.0); HEMATOCRIT 29.2 % (35.0-46.0); LYMPHOCYTE # 0.8 TH/MM3 (1.0-4.8); MEAN CORPUSCULAR HEMOGLOBIN 29.2 PG (27.0-34.0); MEAN CORPUSCULAR HGB CONC 32.8 % (32.0-36.0); MONO % 2.7 % (0.0-8.0); NEUT % 90.2 % (16.0-70.0); PLATELET COUNT 380 TH/MM3 (150-450); RED BLOOD COUNT 3.28 MIL/MM3 (4.00-5.30); RED CELL DISTRIBUTION WIDTH 13.4 % (11.6-17.2); WHITE BLOOD COUNT 11.9 TH/MM3 (4.0-11.0)
[2017-02-05 08:10] LABS: HEMO FLAGS AUTO DIFF
[2017-02-05] MEDS: SODIUM CHLORIDE 0.9% FLUSH 10 ML FLUSH IV FLUSH SCH (09:00)
[2017-02-05 09:04] LABS: PLATELET ESTIMATE SMEAR NORMAL (NORMAL); PLATELET MORPHOLOGY NORMAL (NORMAL); SCAN/DIFF AUTO DIFF CONFIRMED
[2017-02-05] MEDS: OLANZapine 5 MG TAB PO SCH (10:19)
--- NOTE | 2017-02-05 11:43 | PD.ONC.PN ---
Subjective Subjective Remarks Afebrile overnight. Waiting on records from [place]. Patient going down for CT thorax today, as well. Objective Data Date Time Temp Pulse Resp B/P (MAP) Pulse Ox O2 Delivery O2 Flow Rate FiO2 02/05/17 08:00 97.7 83 20 125/57 (79) 93 02/05/17 07:33 95 T-piece 28 02/05/17 04:00 97.6 88 21 134/65 (88) 94 02/05/17 00:00 97.4 78 21 114/60 (78) 93 02/04/17 20:23 96 T-piece 28 02/04/17 20:00 97.5 52 19 146/62 (90) 94 02/04/17 16:00 98.1 92 20 133/69 (90) 94 02/04/17 12:00 98.4 99 18 144/72 (96) 93 02/05/17 02/05/17 02/05/17 07:00 15:00 23:00 Intake Total 0 ml Output Total 300 ml 300 ml Balance -300 ml -300 ml Result Diagram: 02/05/17 0550 02/04/17 1200 Laboratory Results Laboratory Tests Test 02/04/17 12:00 02/05/17 05:50 White Blood Count 12.7 TH/MM3 11.9 TH/MM3 Red Blood Count 3.36 MIL/MM3 3.28 MIL/MM3 Hemoglobin 9.8 GM/DL 9.6 GM/DL Hematocrit 29.7 % 29.2 % Mean Corpuscular Volume 88.3 FL 89.0 FL Mean Corpuscular Hemoglobin 29.3 PG 29.2 PG Mean Corpuscular Hemoglobin Concent 33.1 % 32.8 % Red Cell Distribution Width 13.5 % 13.4 % Platelet Count 406 TH/MM3 380 TH/MM3 Mean Platelet Volume 9.9 FL 10.5 FL Neutrophils (%) (Auto) 93.4 % 90.2 % Lymphocytes (%) (Auto) 4.6 % 7.0 % Monocytes (%) (Auto) 1.8 % 2.7 % Eosinophils (%) (Auto) 0.0 % 0.0 % Basophils (%) (Auto) 0.2 % 0.1 % Neutrophils # (Auto) 11.9 TH/MM3 10.8 TH/MM3 Lymphocytes # (Auto) 0.6 TH/MM3 0.8 TH/MM3 Monocytes # (Auto) 0.2 TH/MM3 0.3 TH/MM3 Eosinophils # (Auto) 0.0 TH/MM3 0.0 TH/MM3 Basophils # (Auto) 0.0 TH/MM3 0.0 TH/MM3 CBC Comment DIFF FINAL AUTO DIFF Differential Comment AUTO DIFF CONFIRMED Haptoglobin 402 MG/DL Blood Urea Nitrogen 15 MG/DL Creatinine 0.61 MG/DL Random Glucose 196 MG/DL Total Protein 5.9 GM/DL Albumin 2.1 GM/DL Calcium Level 8.6 MG/DL Alkaline Phosphatase 46 U/L Aspartate Amino Transf (AST/SGOT) 17 U/L Alanine Aminotransferase (ALT/SGPT) 25 U/L Lactate Dehydrogenase 184 U/L Total Bilirubin 0.2 MG/DL Sodium Level 142 MEQ/L Potassium Level 4.4 MEQ/L Chloride Level 108 MEQ/L Carbon Dioxide Level 26.5 MEQ/L Anion Gap 8 MEQ/L Estimat Glomerular Filtration Rate 95 ML/MIN Iron Level 57 MCG/DL Total Iron Binding Capacity 216 MCG/DL Percent Iron Saturation 26.4 % Ferritin 214 NG/ML Vitamin B12 Level 673 PG/ML Folate GREATER THAN 20.0 NG/ML Platelet Estimate NORMAL Platelet Morphology Comment NORMAL Red Cell Morphology Comment NORMAL Administered Medications Medications (Trade) Dose Ordered Sig/Jacob Route PRN Reason Start Time Stop Time Status Last Admin Dose Admin Sodium Chloride 1,000 ml @ 100 mls/hr Q10H IV 02/01/17 22:47 02/04/17 23:02 Sodium Chloride (NS Flush) 2 ml BID IV FLUSH 02/02/17 09:00 02/03/17 10:29 Albuterol/ Ipratropium (Duoneb Neb) 1 ampule Q4HR WHILE AWAKE NEB NEB 02/02/17 08:00 02/05/17 07:33 Acetaminophen (Tylenol 650 Mg/ 20 ml Liq) 650 mg Q6H PRN PO FEVER >100.5 AND/OR HEADACHE 02/01/17 23:00 02/01/17 23:28 Olanzapine (ZyPREXA) 5 mg DAILY PO 02/02/17 09:00 02/05/17 10:19 Hyoscyamine Sulfate (Levsin Liq) 0.125 mg Q4H PRN PEG SECRETIONS 02/02/17 16:15 02/03/17 05:04 Methylprednisolone Sodium Succinate (SoluMEDROL INJ) 40 mg Q8HR IV 02/02/17 22:00 02/05/17 06:09 Levofloxacin/ Dextrose 150 ml @ 100 mls/hr Q24H IV 02/03/17 15:00 02/04/17 13:47 Objective Remarks GENERAL: Elderly female lying in bed, resting. SKIN: Warm and dry. HEAD: Normocephalic. EYES: No injection or drainage. NECK: Supple, trachea midline. trach in place. CARDIOVASCULAR: Regular rate and rhythm RESPIRATORY: Breath sounds equal bilaterally. No accessory muscle use. GASTROINTESTINAL: Abdomen soft, non-tender, nondistended. G-tube in place, receiving tube feeds EXTREMITIES: No cyanosis NEUROLOGICAL: awake, alert. follows commands. 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 --thus far appears to be locally advanced disease, will obtain CT chest for further staging. --will need ENT and Rad/onc input. -- will probably need a referral to a tertiary care center such as the [facility] [place]. History: recently presented to the ED with worsening dyspnea and dysphagia. --CT scan neck revealed a mass involving the tonsillar base of the tongue on the right extending down to the level of the true vocal cords. +extensive involvement of the right true vocal cord. Tumor spread was also noted involving the soft tissues of the neck by direct extension. confluent zoey mass with extension of the tumor into the right neck measuring 3.9 x 2.7 cm. This extended down to the level of clavicle and involving the thyroid. There were moderate degenerative changes of the cervical spine but no evidence of metastatic disease. --Due to the patient's airway compromise, surgery was consulted and it was decided that the patient needed a high level of care at a different hospital. She was transferred to [facility] in [place] where she underwent tracheostomy and PEG tube insertion. She was brought back to [facility]. --records request sent to [facility] (2) Normocytic anemia ICD Codes: D64.9 - Anemia, unspecified Plan: Mild normocytic anemia due to acute illness, --Continue to monitor. --no iron or B12 deficiency. 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 h/o Schizophrenia. Obesity. Tracheostomy. PEG tube insertion Plan 1. 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 Per the records, a multi-disciplinary team reviewed her case at [facility] and determined that there was no further surgical role , that her cancer(s) would be amenable to chemotherapy and radiation only. The patient was therefore transferred back to [facility] in [place]. 2. monitor CBC 3. await pathology report 4.CT chest today 5. patient/HCS are considering hospice and have meeting this afternoon with hospice. Attending Statement The exam, history, and the medical decision-making described in the above note were completed with the assistance of the mid-level provider. I reviewed and agree with the findings presented. I attest that I had a [id number] encounter with the patient on the same day, and personally performed and documented my assessment and findings in the medical record Records reviewed patient/family opted for hospice Ita Vance Feb 05, 2017 11:43 Prateek Bertrand MD Feb 05, 2017 22:47
[2017-02-05 12:00] VITALS: BP 115/54; PULSE 68; RESP 16; TEMP 98.4; O2SAT 93
[2017-02-05] MEDS ORDERED: IOHEXOL 350 MG/ML 10 ML VIAL (for RAD DIAG) IVCONTRAST ONE (12:21)
--- NOTE | 2017-02-05 12:44 | RADRPT ---
EXAM DATE/TIME: 02/05/2017 12:07 [place] COMPARISON: CT SOFT TISSUE NECK W CONTRAST, January 22, 2017, 10:24. INDICATIONS : Neoplasm, staging study for head and neck cancer. IV CONTRAST: 75 cc Omnipaque 350 (iohexol) IV RADIATION DOSE: 5.10 CTDIvol (mGy) MEDICAL HISTORY : Head and neck cancer. SURGICAL HISTORY : Ovary surgery. ENCOUNTER: Initial ACUITY: 1 day PAIN SCALE: 0/10 LOCATION: chest TECHNIQUE: Volumetric scanning of the chest was performed. Using automated exposure control and adjustment of t he mA and/or kV according to patient size, radiation dose was kept as low as reasonably achievable to obtain optimal diagnostic quality images. DICOM format image data is available electronically for review and comparison. Follow-up recommendations for detected pulmonary nodules are based at a minimum on nodule size and pa tient risk factors according to Fleischner Society Guidelines. FINDINGS: LUNGS: There is minimal bibasilar densities greater left lower lobe.. No concerning pulmonary nodule is vis ualized. PLEURA: There small bilateral pleural effusions. MEDIASTINUM: The heart and great vessels demonstrate no acute abnormality. There is no mediastinal or hilar lymph adenopathy. AXILLAE: Within normal limits. No lymphadenopathy. SKELETAL: Within normal limits for patient age. MISCELLANEOUS: The visualized upper abdominal organs demonstrate no acute abnormality. Tracheostomy tube in good pos ition. Enlarged heterogeneous mass in the right neck only partially seen on this study. Left renal cy st. Percutaneous gastrostomy tube noted. . CONCLUSION: 1. Small bilateral pleural effusions and bibasilar densities likely atelectasis. 2. Right neck mass partially seen. 3. No enlarged adenopathy or mass identified. Phani Salas MD on February 05, 2017 at 12:29 Board Certified Radiologist. This report was verified electronically.
--- NOTE | 2017-02-05 12:49 | HHI.PR ---
Subjective Remarks Resting in room, eyes closed but opens to voice Awake understands questions, Trach, trach care suctioning, copius secretions, added scope patch Afebrile, (Amy Barros) Objective Objective Results - Vital Signs Date Time Temp Pulse Resp B/P (MAP) Pulse Ox O2 Delivery O2 Flow Rate FiO2 02/05/17 12:00 98.4 68 16 115/54 (74) 93 02/05/17 08:00 97.7 83 20 125/57 (79) 93 02/05/17 07:33 95 T-piece 28 02/05/17 04:00 97.6 88 21 134/65 (88) 94 02/05/17 00:00 97.4 78 21 114/60 (78) 93 02/04/17 20:23 96 T-piece 28 02/04/17 20:00 97.5 52 19 146/62 (90) 94 02/04/17 16:00 98.1 92 20 133/69 (90) 94 I/O 02/04/17 02/04/17 02/04/17 02/05/17 02/05/17 02/05/17 06:59 14:59 22:59 06:59 14:59 22:59 Intake Total 0 ml 190 ml 0 ml 0 ml Output Total 200 ml 1050 ml 300 ml 500 ml Balance -200 ml 190 ml -1050 ml -300 ml -500 ml Intake Oral 0 ml 0 ml 0 ml IV Total 190 ml Output Urine Total 200 ml 1050 ml 300 ml 500 ml # Bowel Movements 1 (Amy Barros) Result Diagram: 02/05/17 0550 02/04/17 1200 ROS General: Other (limited ROS) (Amy Barros) Physical Exam Physical Exam PHYSICAL EXAMINATION (Amy Barros) A/P Assessment and Plan history of neck abscess., Large right-sided tumor originating at the base of tongue and into the neck Tracheostomy in place, suction when necessary, Levsin ordered assist with secretions, oxygen, dual neb treatments Encourage patient to cough and deep breathe, oncology consulted for their expert opinion., Ordered before niece decided to transition to hospice, CT chest done today. Niece is these spokes person for this patient. Interested in hospice Schizophrenia, medical management, currently patient is calm, opens eyes and tracks, shakes her head in mouths words, understands simple communication Obesity, history of, patient is now requiring feeding via PEG tube, weight loss since her initial diagnosis of head and neck cancer. Support her protein level Positive sputum culture, Pseudomonas, BROOK to follow, placed on Levaquin IV for now, contact isolation Afebrile, no leukocytosis, copius secretions, Scope patch on, Anemia, no acute blood loss probable secondary to her chronic disease Continue to monitor her labs Discharge planning, hospice consult initiated today, niece spoke with Jesusita briefly yesterday, meeting planned today at 1330. Looking at no aggressive care , focus more on comfort Looking at transitional home placement, hospice care center Records ordered from [facility] Discussed with nurse Discussed with Dr. Mohan, seen on his behalf Discussed with Hospice (Amy Barros) Assessment and Plan pt is seen & examined chart reviewed d/w Pt d/w amy gonzales w above Hospice is consulted per family's request /pt is to be tx to inpatient hospice this afternoon d/w SW see orders see f/u kvng COOK overall prognosis is poor (Rachel Mohan MD) Amy Barros Feb 05, 2017 12:49 Rachel Mohan MD Feb 05, 2017 16:08
[2017-02-05] MEDS: LEVOFLOXACIN 750 MG PREMIX INJ 150 ML IV SCH (13:49)
[2017-02-05] MEDS ORDERED: SCOPOLAMINE 1.5 MG PATCH T-DERMAL SCH (14:00)
[2017-02-05 16:00] VITALS: BP 118/60; PULSE 81; RESP 18; TEMP 97.5; O2SAT 91
[2017-02-05] MEDS ORDERED: LEVA750T9 PEG (16:14)
[2017-02-05] MEDS ORDERED: SCOP1PAT2 T-DERMAL (16:14)
[2017-02-05] MEDS ORDERED: PRED10PA PEG (16:15)
--- NOTE | 2017-02-05 18:24 | HHI.DS ---
Discharge Summary Admission Date Feb 01, 2017 at 22:10 Discharge Date: Feb 05, 2017 Admitting Diagnosis Brief History HISTORY OF PRESENT ILLNESS: This was a 81-year-old female who recently presented to the [facility] with worsening dyspnea and dysphagia. She underwent a CT scan of the neck. revealed a mass involving the tonsillar base of the tongue on the right extending down to the level of the true vocal cords. There was extensive involvement of the right true vocal cord. Tumor spread was also noted involving the soft tissues of the neck by direct extension. There was a confluent zoey mass with extension of the tumor into the right neck measuring 3.9 x 2.7 cm. This extended down to the level of clavicle and involving the thyroid. There were moderate degenerative changes of the cervical spine but no evidence of metastatic disease. Due to the patient's airway compromise, surgery was consulted and it was decided that the patient needed a high level of care at a different hospital. She was transferred to [facility] in [place] where she underwent tracheostomy and PEG tube insertion. She was brought back to [facility]. She had a trache collar at 28% and is saturating well. CBC/BMP: 02/05/17 0550 02/04/17 1200 Significant Findings Laboratory Tests Test 02/04/17 12:00 02/05/17 05:50 White Blood Count 12.7 TH/MM3 (4.0-11.0) 11.9 TH/MM3 (4.0-11.0) Red Blood Count 3.36 MIL/MM3 (4.00-5.30) 3.28 MIL/MM3 (4.00-5.30) Hemoglobin 9.8 GM/DL (11.6-15.3) 9.6 GM/DL (11.6-15.3) Hematocrit 29.7 % (35.0-46.0) 29.2 % (35.0-46.0) Neutrophils (%) (Auto) 93.4 % (16.0-70.0) 90.2 % (16.0-70.0) Lymphocytes (%) (Auto) 4.6 % (9.0-44.0) 7.0 % (9.0-44.0) Neutrophils # (Auto) 11.9 TH/MM3 (1.8-7.7) 10.8 TH/MM3 (1.8-7.7) Lymphocytes # (Auto) 0.6 TH/MM3 (1.0-4.8) 0.8 TH/MM3 (1.0-4.8) Haptoglobin 402 MG/DL (30-200) Random Glucose 196 MG/DL (74-106) Total Protein 5.9 GM/DL (6.4-8.2) Albumin 2.1 GM/DL (3.4-5.0) Chloride Level 108 MEQ/L (98-107) Total Iron Binding Capacity 216 MCG/DL (250-450) Folate GREATER THAN 20.0 NG/ML Imaging Last Impressions Chest X-Ray 02/03/17 0600 Signed Impressions: Service Date/Time: Sunday, February 03, 2017 06:26 - CONCLUSION: 1. Minimal basal opacity unchanged from February 02. No new infiltrate or effusion. Rush Crain MD PE at Discharge GENERAL: elderly female who appeared to be in no acute distress. She awakens to voice HEAD: Normocephaic Facial features appear symmetric. OROPHARYNGEAL: trach sutured in, copius secretions, white, medium thin NECK: Supple. trach, Trachea midline without deviation. CARDIAC: Regular rhythm, regular rate, S1 and S2 are heard. LUNGS: Rhonchi to auscultation bilaterally. Diminished BS. No use of accessory muscles on inspiration or expiration. ABDOMEN: Soft, nontender, Bowel sounds active, peg in with feedings EXTREMITIES: no edema. warm NEUROLOGICAL: Patient mood and affect appropriate. No anxiety SKIN:Warm and moist Hospital Course These are the diagnosis used to treat patient during this hospital stay. history of neck abscess., Large right-sided tumor originating at the base of tongue and into the neck Tracheostomy in place, suction when necessary, Levsin ordered assist with secretions, oxygen, dual neb treatments Encourage patient to cough and deep breathe, oncology consulted for their expert opinion., Ordered before niece decided to transition to hospice Niece is these spokes person for this patient. Interested in hospice College he was consult for their expert opinion, consult was done on admission before niece came and mentioned hospice, CT of the chest was performed today, but after niglory met with hospice she decided that at transition hospice care would be in her aunt's best interest Schizophrenia, medical management, currently patient is calm, opens eyes and tracks, shakes her head in mouths words, understands simple communication Obesity, history of, patient is now requiring feeding via PEG tube, weight loss since her initial diagnosis of head and neck cancer. Support her protein level Positive sputum culture, Pseudomonas, BROOK to follow, placed on Levaquin IV for now, contact isolation Afebrile, no leukocytosis Anemia, no acute blood loss probable secondary to her chronic disease Continue to monitor her labs Discharge planning, hospice consult initiated today, niece spoke with Jesusita briefly and plans to speak with her again tomorrow. Looking at no aggressive care, focus more on comfort Looking at transitional home placement, hospice care center Patient is brief hospital stay remained uneventful, respiratory and nursing staff did frequent suctioning to maintain patency of tracheostomy. Patient's niece who is the power of county attorney met with hospice on 2 separate occasions, she was transitioned today around 1730 about any distress Pt Condition on Discharge: Stable Discharge Disposition: Hospice/Med Facility Discharge Instructions DIET: Follow Instructions for: On Tube Feeding Additional Diet Instructions: Jevity 1.5 jose alfredo @ 30 cc/hr Fluid Restrictions: none Activities you can perform: Weight Bearing as [place] Other Activity Instructions: fall precautions Follow up Referrals: PCP Follow-up - 2-3 Days New Medications: Levofloxacin (Levaquin) 750 Mg Tablet 1 TAB PEG DAILY for pneumonia, #5 TAB Prednisone (21) 10 mg tab Dose Pack (Prednisone (21) 10 mg tab Dose Pack) 10 Mg Pack 10 MG PEG DIRECTED for Inflammation, #1 DSPK 0 Refills Scopolamine (Transderm-Scop) 1 Mg/3 Days Dis 1 PATCH T-DERMAL Q3D for decrease secretions MDD 1, #10 PATCH 0 Refills Continued Medications: Ipratropium-Albuterol Neb (Duoneb) 0.5-2.5 Mg/3 Ml Neb 1 NEBULE INH Q4HR NEB for SHORTNESS OF BREATH, #120 NEBULE 0 Refills Olanzapine (Zyprexa) 5 Mg Tab 5 MG PO DAILY, #30 TAB 0 Refills Amy Barros Feb 05, 2017 18:24
== END 2017-02-05 17:15 | disposition hospice, inpatient (51) | DRG 147 ==
LOC: HOCA 22:10
PROVIDERS: ADMIT Specialist; ATTEND Specialist
DX: C01 Malignant neoplasm of base of tongue (principal); C79.89 Secondary malignant neoplasm of other specified sites; R06.89 Other abnormalities of breathing; Z93.0 Tracheostomy status; C73 Malignant neoplasm of thyroid gland; F20.9 Schizophrenia, unspecified; R13.10 Dysphagia, unspecified; Z93.1 Gastrostomy status; D63.8 Anemia in other chronic diseases classified elsewhere; E66.9 Obesity, unspecified
CPT/HCPCS: 71010; 71260; 80048; 80053; 81001; 82607; 82728; 82746; 83010; 83540; 83550; 83615; 85025; 87040; 87070; 87077; 87086; 87186; 87205; 94640; A7520; A7521; J1956; J2920; J7030; Q9967

== ENCOUNTER 2017-04-08 19:08 | Emergency (ER) | payer MEDICARE, OTHER ==
[~2017-04-08] VITALS: Ht 152.4 cm; Wt 63.6 kg
[~2017-04-08 19:08] MED LIST changes: +IPRASOL INH; +LEVA750T9 PEG; +PRED10PA PEG; +SCOP1PAT2 T-DERMAL
[2017-04-08 19:10] VITALS: BP 138/59; PULSE 93; RESP 14; O2SAT 94
[2017-04-08 19:15] VITALS: O2SAT 98; O2SAT 99
[2017-04-08 20:00] VITALS: O2SAT 99
[2017-04-08 20:43] LABS: BASOPHIL % 0.5 % (0.0-2.0); EOSINOPHIL # 0.1 TH/MM3 (0-0.4); EOSINOPHIL % 0.9 % (0.0-4.0); HEMATOCRIT 29.8 % (35.0-46.0); HEMO FLAGS DIFF FINAL; LYMPH % 14.7 % (9.0-44.0); LYMPHOCYTE # 1.3 TH/MM3 (1.0-4.8); MEAN CELL VOLUME 85.8 FL (80.0-100.0); MEAN CORPUSCULAR HEMOGLOBIN 27.9 PG (27.0-34.0); MEAN CORPUSCULAR HGB CONC 32.6 % (32.0-36.0); MONO % 7.2 % (0.0-8.0); NEUT % 76.7 % (16.0-70.0); PLATELET COUNT 363 TH/MM3 (150-450); RED BLOOD COUNT 3.48 MIL/MM3 (4.00-5.30); RED CELL DISTRIBUTION WIDTH 15.9 % (11.6-17.2); WHITE BLOOD COUNT 9.1 TH/MM3 (4.0-11.0)
[2017-04-08 20:55] LABS: APTT (PATIENT) 22.6 SEC (24.3-30.1)
[2017-04-08] MEDS ORDERED: METOCLOPRAMIDE HCL 10 MG/2 ML VIAL IV PUSH ONE (21:00)
[2017-04-08] MEDS ORDERED: SODIUM CHLORID 0.9% 500 ML INJ 500 ML IV ONE (21:00)
--- NOTE | 2017-04-08 21:00 | PD ---
HPI Chief Complaint: [employer] Problem Time Seen by Provider: 19:36 Travel History International Travel<30 days: No Contact w/Intl Traveler<30days: No Traveled to known affect area: No History of Present Illness HPI The patient is a 81 year old female who presents to the [facility] emergency department with a history of being brought in by ambulance services after her tracheostomy reportedly came out 2 hours prior to arrival. The tracheostomy tubing was not brought with the patient. There is no record of what size the tube was. The patient reportedly had this tracheostomy replaced according to the record and [place]. The tracheostomy was placed related to an oral pharyngeal mass that according to the record was quite large. The patient was transferred to a [facility] to manage the patient initially in place the tracheostomy tube as well as for PEG tube insertion. The patient was then transferred back to this facility. The patient on arrival denies any acute complaints. The patient's O2 saturation is 94-96% on room air. The patient was placed on 2 L nasal cannula O2. According to the record the patient does have a history of schizophrenia. The patient cannot recall why she has had the tracheostomy placed. She denies having any other acute complaints, however her history is limited possibly related to her psychiatric disorder. In route to this facility ambulance services reported that the patient became motion sick and experienced vomiting. No IV access was obtained prior to arrival. The patient' s nurse, Agata did call the [facility] regarding this patient. They reported that the patient had no other acute complaints, however she accidentally pulled out her tracheostomy. 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 ) Musculoskeletal: Yes (CHRONIC PAIN ) Neurologic: No Psychiatric: No Reproductive: No Schizophrenia: Yes Tetanus Vaccination: Unknown Past Surgical History Narrative Surgical The patient's past surgical history is significant for tracheostomy, PEG tube insertion, oophorectomy Other Surgery: Yes (ovaries) Social History Alcohol Use: No Tobacco Use: No Substance Use: No Allergies-Medications (Allergen,Severity, Reaction): Coded Allergies: No Known Allergies (Verified , 01/22/17) Reported Meds & Prescriptions Reported Meds & Active Scripts Active Prednisone (21) 10 mg tab Dose Pack (Prednisone) 10 Mg Pack 10 Mg PEG DIRECTED Levaquin (Levofloxacin) 750 Mg Tablet 1 Tab PEG DAILY Transderm-Scop (Scopolamine) 1 Mg/3 Days Dis 1 Patch T-DERMAL Q3D MDD 1 Reported Morphine Sulfate 10 Mg/0.5 Ml Syringe PEG Lorazepam 1 Mg Tab 1 Mg PEG Q4H PRN Lorazepam 0.5 Mg Tab 0.5 Mg PEG Q4H Acetaminophen 650 Mg/20.3 Ml Solution Acetaminophen 325 Mg Capsule 650 Mg RECTAL Promethazine HCl 50 Mg Tablet 25 Mg Fluoxetine (Fluoxetine HCl) 10 Mg Tab 10 Mg PO DAILY Duoneb (Ipratropium-Albuterol Neb) 0.5-2.5 Mg/3 Ml Neb 1 Nebule INH Q4HR NEB Zyprexa (Olanzapine) 5 Mg Tab 5 Mg PO DAILY Review of Systems Except as stated in HPI: all other systems reviewed are Neg General / Constitutional: No: Fever Eyes: No: Visual changes HENT: Positive: Other (tracheostomy tube removal), No: Headaches Cardiovascular: No: Chest Pain or Discomfort Respiratory: No: Shortness of Breath Gastrointestinal: Positive: Nausea, Vomiting, No: Diarrhea, Abdominal Pain Genitourinary: No: Dysuria Musculoskeletal: No: Pain Skin: No Rash Neurologic: No: Weakness Psychiatric: No: Depression Endocrine: No: Polydipsia Hematologic/Lymphatic: No: Easy Bruising Physical Exam Narrative General: The patient is a well-developed well-nourished female in no acute distress. Head and Neck exam: Head is normocephalic atraumatic. Eyes: EOMI, pupils are equal round and reactive to light. Nose: Midline septum with pink mucous membranes Mouth: Dentition unremarkable. Moist mucus membranes. Posterior oropharynx is not erythematous. No tonsillar hypertrophy. Uvula midline. Airway patent. Neck: No palpable lymphadenopathy. No nuchal rigidity. No thyromegaly. The patient has a tracheostomy stoma noted in the anterior neck that appears to be in good repair. Stoma appears to be open, some clear drainage is noted. Cardiovascular: Regular rate and rhythm without murmurs, gallops, or rubs. No pulse deficit to the extremities on simultaneous auscultation and palpation of her radial artery. Lungs: Clear to auscultation bilaterally. No wheezes, rhonchi, or rales. Abdomen: Soft, without tenderness to palpation in all 4 quadrants of the abdomen. No guarding, rebound, or rigidity. Normal bowel sounds are audible. The patient has a feeding tube in place in the left upper quadrant of the abdomen that appears to be in good repair. Extremities: No clubbing, cyanosis, or edema. 2+ pulses in all 4 extremities. Back: No spinous process tenderness to palpation. No costovertebral angle tenderness to palpation. Neurologic Exam: Grossly nonfocal. The patient is awake and alert, cooperative on examination. Skin Exam: No rash noted. Intact skin that is warm and dry. Data Data Last Documented VS Vital Signs Date Time Temp Pulse Resp B/P (MAP) Pulse Ox O2 Delivery O2 Flow Rate FiO2 04/08/17 20:00 99 35 04/08/17 20:00 T-piece 04/08/17 19:15 2.00 04/08/17 19:10 93 14 138/59 (85) Orders Orders Electrocardiogram (04/08/17:24) Complete Blood Count With Diff (04/08/17:24) Comprehensive Metabolic Panel (04/08/17 20:24) Troponin I (04/08/17 20:24) Prothrombin Time / Inr (Pt) (04/08/17:24) Act Partial Throm Time (Ptt) (04/08/17:24) Lipase (04/08/17:24) Urinalysis - C+S If Indicated (04/08/17 20:24) Magnesium (Mg) (04/08/17 20:24) Chest, Single Ap (04/08/17:24) Iv Access Insert/Monitor (04/08/17:24) Ecg Monitoring (04/08/17:24) Oximetry (04/08/17 20:24) Sodium Chlorid 0.9% 500 Ml Inj (Ns 500 M (04/08/17 21:00) Metoclopramide Inj (Reglan Inj) (04/08/17 21:00) Urine Culture (04/08/17 21:05) Abdomen, Flat & Upright (04/08/17 21:45) Labs Laboratory Tests Test 04/08/17 20:30 04/08/17 21:05 White Blood Count 9.1 TH/MM3 Red Blood Count 3.48 MIL/MM3 Hemoglobin 9.7 GM/DL Hematocrit 29.8 % Mean Corpuscular Volume 85.8 FL Mean Corpuscular Hemoglobin 27.9 PG Mean Corpuscular Hemoglobin Concent 32.6 % Red Cell Distribution Width 15.9 % Platelet Count 363 TH/MM3 Mean Platelet Volume 9.7 FL Neutrophils (%) (Auto) 76.7 % Lymphocytes (%) (Auto) 14.7 % Monocytes (%) (Auto) 7.2 % Eosinophils (%) (Auto) 0.9 % Basophils (%) (Auto) 0.5 % Neutrophils # (Auto) 7.0 TH/MM3 Lymphocytes # (Auto) 1.3 TH/MM3 Monocytes # (Auto) 0.7 TH/MM3 Eosinophils # (Auto) 0.1 TH/MM3 Basophils # (Auto) 0.0 TH/MM3 CBC Comment DIFF FINAL Differential Comment Prothrombin Time 11.0 SEC Prothromb Time International Ratio 1.0 RATIO Activated Partial Thromboplast Time 22.6 SEC Blood Urea Nitrogen 14 MG/DL Creatinine 0.83 MG/DL Random Glucose 171 MG/DL Total Protein 6.4 GM/DL Albumin 2.5 GM/DL Calcium Level 9.0 MG/DL Magnesium Level 2.1 MG/DL Alkaline Phosphatase 46 U/L Aspartate Amino Transf (AST/SGOT) 22 U/L Alanine Aminotransferase (ALT/SGPT) 19 U/L Total Bilirubin 0.3 MG/DL Sodium Level 137 MEQ/L Potassium Level 3.7 MEQ/L Chloride Level 98 MEQ/L Carbon Dioxide Level 31.1 MEQ/L Anion Gap 8 MEQ/L Estimat Glomerular Filtration Rate 66 ML/MIN Troponin I LESS THAN 0.02 NG/ML Lipase 86 U/L Urine Color YELLOW Urine Turbidity HAZY Urine pH 8.5 Urine Specific [place] 1.007 Urine Protein TRACE mg/dL Urine Glucose (UA) NEG mg/dL Urine Ketones 10 mg/dL Urine Occult Blood NEG Urine Nitrite NEG Urine Bilirubin NEG Urine Urobilinogen LESS THAN 2.0 MG/DL Urine Leukocyte Esterase LARGE Urine RBC 3 /hpf Urine WBC 141 /hpf Urine Squamous Epithelial Cells <1 /hpf Urine Amorphous Sediment RARE Microscopic Urinalysis Comment CULTURE INDICATED MDM Medical Decision Making Medical Screen Exam Complete: Yes Emergency Medical Condition: Yes Medical Record Reviewed: Yes Interpretation(s) Last Impressions Chest X-Ray 04/08/172023 Signed Impressions: Service Date/Time: Saturday, April 08, 2017 20:39 - CONCLUSION: 1. Mild basilar atelectasis. Tracheostomy in good position. Rush Crain MD Differential Diagnosis Tracheostomy tube dislodgment from accidental removal, versus vomiting causing dislodgment, versus coughing causing dislodgment Narrative Course During the course of the patients emergency department visit, the patients history, examination, and differential diagnosis were reviewed with the patient. The patient was placed on a campus monitor with oximetry and frequent blood pressure monitoring. The patient had IV access obtained and blood work sent for analysis. Respiratory therapy was available at the bedside to assist with the patient's care. A 6 tracheostomy tube was at the bedside. Attempt was made to replace the patient's trach with the size 6 [place]. This was clearly too big for the patient's stoma. The obturator was however able to be placed down into the patient's trachea, therefore the tract is open. A smaller trach tube was obtained by respiratory therapy. The patient's tracheostomy was replaced with a size 4 that was easily introduced into the patient's trachea. The patient was suctioned. A trach collar was placed. The patient was reassessed by respiratory therapy after the tracheostomy was placed and was noted to have vomiting. She called me back into the room to assess the patient. The emesis smelled of her tube feedings. She had approximately 800 mL of emesis. The patient's nurse, Agata called to the [facility] to discuss this further with the staff. They report that the patient has had problems with projectile vomiting after feedings. They reported that the patient's [facility] nurse was aware. The patient was initially provided normal saline a 500 mL bolus, Reglan 5 mg IV. The patient's vomiting resolved. The patients laboratory studies were reviewed and remarkable for no acute findings. Chest x-ray showed no acute findings. Tracheostomy tube appear to be in position. An abdominal flat and upright revealed a gastrostomy tube that projects into the stomach, mild ileus, no free air, no other evidence of obstruction. A call was placed out to [facility] regarding this patient's case. I spoke to the after-hours nurse, and at approximately 10 PM. She reviewed the patient's record. She is told no nodes that the patient's nurse was aware of the patient having vomiting after tube feeds. She was agreeable with the plan to hold the patient's tube feeds and she will send the patient's nurse out to reassess her this evening and decrease the volume of the patient's tube feeds. The patient is resting comfortably and feels better, is alert and in no distress. The patients results and examination findings were discussed with the patient. The repeat examination is unremarkable and benign. The history, exam, diagnostic testing, and current condition do not suggest any significant pathology to warrant further testing, continued ED treatment, admission, or surgical evaluation at this point. The vital signs have been stable. The patient does not have uncontrollable pain, intractable vomiting, or other significant symptoms. The patient's condition is stable and appropriate for discharge. The patient will pursue further outpatient evaluation with a primary care physician or other designated or consulting physician as indicated in the discharge instructions. The patient expressed understanding and was agreeable with this plan. Diagnosis Primary Impression: Complication of tracheostomy tube Additional Impression: Vomiting Qualified Codes: R11.10 - Vomiting, unspecified Referrals: [facility] Patient Instructions: Acute Nausea and Vomiting (ED), General Instructions, Tracheostomy Care (ED) Additional Instructions: Hold tube feeds until reassessed by the hospice nurse. Med/Other Pt SpecificInfo: No Change to Meds Disposition: 03 DISCHARGE TO SNF Condition: Stable Silvana Chapa MD Apr 08, 2017 21:00
[2017-04-08 21:05] LABS: ANION GAP 8 MEQ/L (5-15); AST (GOT) 22 U/L (15-37); BICARBONATE 31.1 MEQ/L (21.0-32.0); BLOOD UREA NITROGEN 14 MG/DL (7-18); CHLORIDE 98 MEQ/L (98-107); GLOMERULAR FILTRATION RATE 66 ML/MIN (>89); MAGNESIUM 2.1 MG/DL (1.5-2.5); POTASSIUM 3.7 MEQ/L (3.5-5.1); SODIUM (NA) 137 MEQ/L (136-145)
[2017-04-08 21:06] LABS: ALT (GPT) 19 U/L (10-53)
[2017-04-08 21:10] LABS: ALKALINE PHOSPHATASE 46 U/L (45-117); TOTAL BILIRUBIN ADULT 0.3 MG/DL (0.2-1.0)
[2017-04-08 21:28] LABS: BLOOD, URINE NEG (NEG); COMMENT (UR) CULTURE INDICATED; CULTURE IF INDICATED CULTURE INDICATED; GLUCOSE,URINE NEG (NEG); KETONE, URINE 10 mg/dL (NEG); NITRITE,URINE NEG (NEG); PH, URINE 8.5 (5.0-8.5); SQUAMOUS EPITHELIAL CELL URINE <1 /hpf (0-5); URINE COLOR YELLOW (YELLW/STRAW)
--- NOTE | 2017-04-08 21:33 | RADRPT ---
EXAM DATE/TIME: 04/08/2017 20:39 [facility] COMPARISON: No previous studies available for comparison. INDICATIONS : Short of breath. MEDICAL HISTORY : None. SURGICAL HISTORY : None. ENCOUNTER: Initial ACUITY: 1 day PAIN SCORE: 0/10 LOCATION: Bilateral chest FINDINGS: Tracheostomy in good position. Subsegmental basilar opacity most characteristic of atelectasis. No ef fusion. No pneumothorax. CONCLUSION: 1. Mild basilar atelectasis. Tracheostomy in good position. Rush Crain MD on April 08, 2017 at 21:31 Board Certified Radiologist. This report was verified electronically.
--- NOTE | 2017-04-08 22:58 | RADRPT ---
EXAM DATE/TIME: 04/08/2017 21:59 [facility] COMPARISON: No previous studies available for comparison. INDICATIONS : Shortness of breath. MEDICAL HISTORY : None. SURGICAL HISTORY : Tracheostomy ENCOUNTER: Subsequent ACUITY: 1 day PAIN SCORE: 0/10 LOCATION: Bilateral Abdomen FINDINGS: Gastrostomy tube is present. Bowel gas pattern nonspecific without evidence for obstruction. No free air. Degenerative changes of the spine and advanced arthropathy of the hip joints. CONCLUSION: Gastrostomy projects in the stomach. Mild ileus. No free air. Rush Crain MD on April 08, 2017 at 22:56 Board Certified Radiologist. This report was verified electronically.
[2017-04-08] MEDS ORDERED: FLUO10TA PO (23:07)
[2017-04-08] MEDS ORDERED: PROM50TA4 (23:07)
[2017-04-08] MEDS ORDERED: ACET650S (23:08)
[2017-04-08] MEDS ORDERED: ACET325C RECTAL (23:08)
[2017-04-08] MEDS ORDERED: LORA1TAB12 PEG (23:13)
[2017-04-08] MEDS ORDERED: LORA-373 PEG (23:13)
[2017-04-08] MEDS ORDERED: MORP10SY PEG (23:13)
--- NOTE | 2017-04-09 10:41 | EKG ---
Date Performed: 04/08/2017 Time Performed: 22:26:50 PTAGE: 81 years EKG: Sinus rhythm NORMAL ECG PREVIOUS TRACING : 04/08/2017 22.26 DOCTOR: Lester Barajas Interpretating Date/Time 04/09/2017 10:38:06
== END 2017-04-09 01:04 ==
LOC: NEPC 19:08
DX: Z43.0 Encounter for attention to tracheostomy (principal); R11.10 Vomiting, unspecified; C10.9 Malignant neoplasm of oropharynx, unspecified; F20.9 Schizophrenia, unspecified; E11.9 Type 2 diabetes mellitus without complications; E78.00 Pure hypercholesterolemia, unspecified; F41.9 Anxiety disorder, unspecified
CPT/HCPCS: 71010; 74020; 80053; 81001; 83690; 83735; 84484; 85025; 85610; 85730; 87086; 93005; 96374; 99285; A7521; J2765; J7040